=== PATIENT | male | born 1975 | race Caucasian/White ===

== ENCOUNTER 2021-05-12 18:35 | Emergency (ER) | payer OTHER, SELFPAY ==
--- NOTE | ~2021-05-12 | CT_ITS ---
EXAMINATION: CT ABDOMEN AND PELVIS WITH CONTRAST CLINICAL INFORMATION: Left lower quadrant pain COMPARISON: CT pelvis 12/04/2009 TECHNIQUE: Multidetector volumetric images were obtained from the superior aspect of the liver through the pubic symphysis following administration 85 mL of Omnipaque 350 intravenous contrast. Sagittal and coronal reformatted images were obtained on the technologist's workstation. Oral contrast: No This CT examination was performed using dose optimization techniques as appropriate, variously including the following: *Automated exposure control *Adjustment of mA and/or kV according to patient size (this includes techniques or standardized protocols for targeted exams where dose is matched to indication/reason for exam; i.e. extremities or head) *Use of iterative reconstruction technique DLP: 654 mGy-cm FINDINGS: LUNG BASES: The visualized lung bases are unremarkable. LIVER, GALLBLADDER, AND BILIARY TREE: The liver is normal in size, shape, and attenuation. No focal hepatic lesion or biliary ductal dilatation is present. The gallbladder is unremarkable with no evidence of radiopaque gallstones, gallbladder wall thickening, or obvious pericholecystic inflammatory changes. PANCREAS: Unremarkable. SPLEEN: Unremarkable. ADRENAL GLANDS: Unremarkable. KIDNEYS AND URETERS: The kidneys are normal in size, shape, and attenuation. No hydronephrosis, hydroureter, or calculi seen. No perinephric stranding. BLADDER: Unremarkable. GASTROINTESTINAL TRACT: A small hiatal hernia is present. Diverticular changes are present in throughout the colon and in the distal descending colon there is an area of acute diverticulitis with colonic wall thickening, pericolonic inflammatory changes and fluid in the lateral conal fascia and anterior pararenal fascia. No extraluminal air or extraluminal pericolonic fluid collections are seen. There is marked fatty infiltration of the ileocecal valve as well as submucosal fat in the very distal ileum possibly secondary to old inflammatory disease. The small bowel is otherwise unremarkable. The appendix is not seen but there is no evidence of appendicitis. ABDOMINAL WALL: There is a small periumbilical hernia containing only fat and some mild diastases of the rectus muscles superiorly. LYMPH NODES: No retroperitoneal lymphadenopathy. VASCULAR: Unremarkable. PELVIC VISCERA: Prostate and seminal vesicles appear normal. OSSEOUS STRUCTURES: Mild degenerative changes present spine. CT/CT abdomen pelvis w con IMPRESSION: Acute uncomplicated diverticulitis involving the distal descending colon. Other incidental findings as described above. Fleischner guidelines were followed.
[2021-05-12 19:39] VITALS: BP 138/81; PULSE 92; RESP 18; TEMP 37.1; O2SAT 98; BMI 31.4
[2021-05-12 19:48] LABS: MANUAL DIFF FLAG NO
[2021-05-12 19:50] LABS: Basophils Absolute Auto 0.1 X10*3/uL (0.0-0.2); Basophils Percent Auto 0.7 % (0-2); Eosinophils Absolute Auto 0.5 X10*3/uL (0.0-0.4); Eosinophils Percent Auto 3.4 % (0-4); Hematocrit 43.5 % (42.0-52.0); Hemoglobin 15.2 g/dl (14.0-18.0); Imm Gran Abs Auto 0.05 X10*3/uL (0.00-0.03); Imm Gran Pct Auto 0.4 % (0.0-0.4); Lymphocytes Absolute Auto 3.4 X10*3/uL (1.2-4.9); Lymphocytes Percent Auto 25.7 % (20-40); Mean Corpuscular HGB Conc 34.9 g/dl (31.0-36.0); Mean Corpuscular Hemoglobin 30.6 pg (27.0-33.0); Mean Corpuscular Volume 87.7 fL (80.0-98.0); Mean Platelet Volume 8.9 fL (9.4-12.4); Monocytes Absolute Auto 0.9 X10*3/uL (0.1-1.2); Monocytes Percent Auto 6.4 % (2-11); Neutrophils Absolute Auto 8.5 x10*3/uL (2.0-8.3); Neutrophils Percent Auto 63.4 % (45-73); Platelet Count 284 X10*3/uL (160-400); Red Blood Count 4.96 X10*6/uL (4.60-5.80); Red Cell Distribution Width 12.7 % (11.0-16.0); White Blood Count 13.3 X10*3/uL (4.8-10.8)
[2021-05-12 20:13] LABS: Alanine Aminotransferase 27 U/L (0-40); Albumin Level 4.5 g/dL (3.5-5.0); Alkaline Phosphatase 68 U/L (39-117); Anion Gap 15 (12-20); Aspartate Amino Transferase 20 U/L (5-37); Bilirubin Total 1.4 mg/dL (0.0-1.0); Blood Urea Nitrogen 11 mg/dL (9-16); Calcium 10.3 mg/dL (8.4-10.2); Carbon Dioxide 30 mmol/L (22-29); Chloride 100 mmol/L (96-108); Creatinine Clr Calc Pharmacy 91.5; Estimated Glomerular Filt Rate > 60; Glucose Random 101 mg/dL (60-115); Potassium 3.6 mmol/L (3.3-5.1); Sodium 141 mmol/L (135-145); Total Protein 7.9 g/dL (6.5-8.0)
--- NOTE | 2021-05-12 22:08 | ED.ABDPAIN ---
HPI - Abdominal Pain General Chief Complaint: Abdominal Pain Stated Complaint: sever abd pain Time Seen by Provider: 05/12/21 22:05 Source: patient Mode of arrival: ambulatory History of Present Illness HPI narrative: 46-year-old male with history of diverticulitis presents with onset of left lower quadrant pain that started approximately 09:00 o'clock this morning. Patient states that the pain has continued to increase over the course the day and has been associated with nausea as well as chills. Related Data Previous Rx's Medication Instructions Recorded amoxicillin 875 mg-potassium 1 tab PO Q12H 10 Days #20 tab 05/13/21 clavulanate 125 mg tablet ondansetron 4 mg disintegrating 4 mg PO Q6H PRN #7 tab 05/13/21 tablet Allergies Allergy/AdvReac Type Severity Reaction Status Date / Time No Known Allergies Allergy Verified 05/12/21 19:38 Review of Systems Review of Systems Pertinent positives and negatives as stated in HPI 10 point review of systems is otherwise negative. PMFSH Past Medical History Source: nursing notes reviewed Social History Social History Advance Directives: No Advance Directives Information Provided: No Physical Exam ED Vital Signs: Vital Signs - 24 hr 05/12/21 19:39 05/12/21 22:32 Temperature 98.8 F Pulse Rate 92 Respiratory Rate 18 18 Blood Pressure 138/81 Pulse Oximetry 98 BMI result Body Mass Index 31.4 VITAL SIGNS: Reviewed. GENERAL: Well developed, well nourished, in no acute distress. HEAD: Normocephalic/atraumatic EYES: PERRLA, EOMI EARS: Ext canals without abnormality NOSE: Nares patent bilateral OROPHARYNX: no oral lesions noted, posterior pharynx clear LUNGS: Normal breath sounds. No adventitious sounds or accessory muscle use. SpO2<98> CARDIOVASCULAR: Regular rate and rhythm without noted murmurs ABDOMEN: Soft, left lower quadrant pain without rebound, non-distended with bowel sounds. NEUROLOGIC: Alert and oriented x 4. Course Course Course Narrative: History and clinical presentation consistent with diverticulitis. Patient received pain medication, IV fluids, antibiotics. Review of all investigations consistent with diverticulitis, uncomplicated and patient will be sent home with outpatient antibiotics and instructions to follow-up with his primary care provider as well as GI. MDM - Abdominal Pain Lab Data Result diagrams: 05/12/21 19:44 05/12/21 19:44 Labs: Lab Results 05/12/21 05/12/21 05/12/21 Range/Units 19:44 19:44 22:48 WBC 13.3 H (4.8-10.8) X10*3/uL RBC 4.96 (4.60-5.80) X10*6/uL Hgb 15.2 (14.0-18.0) g/dl Hct 43.5 (42.0-52.0) % MCV 87.7 (80.0-98.0) fL MCH 30.6 (27.0-33.0) pg MCHC 34.9 (31.0-36.0) g/dl RDW 12.7 (11.0-16.0) % Plt Count 284 (160-400) X10*3/uL MPV 8.9 L (9.4-12.4) fL Immature Gran % (Auto) 0.4 (0.0-0.4) % Neut % (Auto) 63.4 (45-73) % Lymph % (Auto) 25.7 (20-40) % Garden % (Auto) 6.4 (2-11) % Eos % (Auto) 3.4 (0-4) % Baso % (Auto) 0.7 (0-2) % Lymph # (Auto) 3.4 (1.2-4.9) X10*3/uL Garden # (Auto) 0.9 (0.1-1.2) X10*3/uL Eos # (Auto) 0.5 H (0.0-0.4) X10*3/uL Baso # (Auto) 0.1 (0.0-0.2) X10*3/uL Abs Immat Gran (auto) 0.05 H (0.00-0.03) X10*3/uL Absolute Neuts (auto) 8.5 H (2.0-8.3) x10*3/uL Absolute Nucleated RBC 0.000 (0.0-0.012) X10*3/uL Nucleated RBC % (auto) 0.0 (0.0-0.2) /100WBC PT (9.9-13.0) SEC INR (0.9-1.1) Sodium 141 (135-145) mmol/L Potassium 3.6 (3.3-5.1) mmol/L Chloride 100 (96-108) mmol/L Carbon Dioxide 30 H (22-29) mmol/L Anion Gap 15 (12-20) BUN 11 (9-16) mg/dL Creatinine 1.05 (0.5-1.4) mg/dL Estim Creat Clear Calc 91.5 Estimated GFR > 60 Random Glucose 101 (60-115) mg/dL Lactic Acid 1.8 (0.5-2.0) mmol/L Calcium 10.3 H (8.4-10.2) mg/dL Total Bilirubin 1.4 H (0.0-1.0) mg/dL AST 20 (5-37) U/L ALT 27 (0-40) U/L Alkaline Phosphatase 68 (39-117) U/L Total Protein 7.9 (6.5-8.0) g/dL Albumin 4.5 (3.5-5.0) g/dL COVID-19 ([facility]) (Negative) COVID-19 Clin Com 05/12/21 05/12/21 Range/Units 22:48 22:48 WBC (4.8-10.8) X10*3/uL RBC (4.60-5.80) X10*6/uL Hgb (14.0-18.0) g/dl Hct (42.0-52.0) % MCV (80.0-98.0) fL MCH (27.0-33.0) pg MCHC (31.0-36.0) g/dl RDW (11.0-16.0) % Plt Count (160-400) X10*3/uL MPV (9.4-12.4) fL Immature Gran % (Auto) (0.0-0.4) % Neut % (Auto) (45-73) % Lymph % (Auto) (20-40) % Garden % (Auto) (2-11) % Eos % (Auto) (0-4) % Baso % (Auto) (0-2) % Lymph # (Auto) (1.2-4.9) X10*3/uL Garden # (Auto) (0.1-1.2) X10*3/uL Eos # (Auto) (0.0-0.4) X10*3/uL Baso # (Auto) (0.0-0.2) X10*3/uL Abs Immat Gran (auto) (0.00-0.03) X10*3/uL Absolute Neuts (auto) (2.0-8.3) x10*3/uL Absolute Nucleated RBC (0.0-0.012) X10*3/uL Nucleated RBC % (auto) (0.0-0.2) /100WBC PT 12.3 (9.9-13.0) SEC INR 1.1 (0.9-1.1) Sodium (135-145) mmol/L Potassium (3.3-5.1) mmol/L Chloride (96-108) mmol/L Carbon Dioxide (22-29) mmol/L Anion Gap (12-20) BUN (9-16) mg/dL Creatinine (0.5-1.4) mg/dL Estim Creat Clear Calc Estimated GFR Random Glucose (60-115) mg/dL Lactic Acid (0.5-2.0) mmol/L Calcium (8.4-10.2) mg/dL Total Bilirubin (0.0-1.0) mg/dL AST (5-37) U/L ALT (0-40) U/L Alkaline Phosphatase (39-117) U/L Total Protein (6.5-8.0) g/dL Albumin (3.5-5.0) g/dL COVID-19 ([facility]) Negative (Negative) COVID-19 Clin Com See Note Discharge Plan Discharge Clinical Impression: Diverticulitis Patient Disposition: Home, Self-Care Instructions: Diverticulitis (ED), Diverticulitis Diet (ED) Additional Instructions: 1. Complete the entire course of antibiotics as prescribed. You have also been prescribed antinausea medication. 2. You should consistently take Tylenol/ibuprofen, [id number], for pain control. 3. Please follow the recommendations for diet. 4. You will need to follow-up with Gastroenterology in 6 weeks. Return to the ER for worsening symptoms. Prescriptions: New amoxicillin-pot clavulanate 875-125 mg tablet 1 tab PO Q12H 10 Days Qty: 20 0RF ondansetron 4 mg tablet,disintegrating 4 mg PO Q6H PRN (Reason: nausea and vomiting) Qty: 7 0RF
[2021-05-12] MEDS: 0.9 % Sodium Chloride 1,000 ML 999 ML IV (22:29)
[2021-05-12] MEDS: Piperacillin Sodium/Tazobactam 3.375 GM in 0.9 % Sodium Chloride 50 ML IV (22:29)
[2021-05-12 22:32] VITALS: RESP 18
[2021-05-12] MEDS: HYDROmorphone HCl 0.5 MG/0.5 ML SYRINGE IVPUSH (22:32)
[2021-05-12 23:04] LABS: INTERNATIONAL NORM RATIO 1.1 (0.9-1.1); Prothrombin Time 12.3 SEC (9.9-13.0)
[2021-05-12 23:07] LABS: Lactic Acid 1.8 mmol/L (0.5-2.0)
[2021-05-12 23:10] LABS: COVID-19 Test Negative (Negative)
[2021-05-12] MEDS: iohexoL 350 MG/ML 100 ML INFUS..BTL 85 ML IV (23:34)
[2021-05-13 01:01] VITALS: BP 122/76; PULSE 88; RESP 16; TEMP 36.7; O2SAT 98
== END 2021-05-13 01:23 | disposition home or self-care (01) ==
PROVIDERS: Emergency Provider Student in an Organized Health Care Education/Training Program
DX: K57.92 Diverticulitis of intestine, part unspecified, without perforation or abscess without bleeding (principal); Z20.822 Contact with and (suspected) exposure to COVID-19
CPT/HCPCS: 36415; 74177; 80053; 83605; 85025; 85610; 87040; 87635; 96365; 96375; 99283; 99284; J1170; J2543; Q9967

== ENCOUNTER 2024-01-13 20:03 | Emergency (ER) | payer OTHER, SELFPAY ==
--- NOTE | ~2024-01-13 | XR_ITS ---
EXAMINATION: XR FOOT, RIGHT CLINICAL INFORMATION: Pain. COMPARISON: None available. TECHNIQUE: AP, lateral, and oblique views of the right foot. FINDINGS: Nonspecific focal lucency with cortical disruption along the dorsal aspect of the talus on the lateral view. Mild multifocal degenerative osteoarthritis. Diffuse soft tissue swelling. XR/XR foot RT min 3V IMPRESSION: 1. Nonspecific focal lucency with cortical disruption along the dorsal aspect of the talus on the lateral view; uncertain if this could be related with an avulsion injury or infectious process. Recommend correlation with physical examination and if indicated further characterization with a CT of the right ankle/foot. 2. Mild multifocal degenerative osteoarthritis. 3. Diffuse soft tissue swelling. Electronically signed by: Katie Brown MD 01/13/2024 09:58 PM EDT
[2024-01-13 20:14] VITALS: BP 125/89; PULSE 76; RESP 16; TEMP 36.8; O2SAT 94; BMI 31.5
--- NOTE | 2024-01-13 20:14 | ED.LOWEXIN ---
HPI - Extremity Injury (Lower) General Chief Complaint: Extremity Injury, Lower Stated Complaint: L ankle pain Time Seen by Provider: 01/13/24 23:09 History of Present Illness ED Provider: Cynthia SEGOVIA Narrative: The patient is a 48-year-old male who injured his ankle 2 weeks ago when he was going down some stairs. He says that he ?rolled? his ankle with an inversion injury. He says that he had a lot of bruising earlier. He says the bruising has gotten better but he still has pain at the foot/ankle and it still hurts when he walks. Related Data Previous Rx's ?Medication ?Instructions ?Recorded amoxicillin 875 mg-potassium 1 tab PO Q12H 10 days #20 tabs 05/13/21 clavulanate 125 mg tablet ondansetron 4 mg disintegrating 4 mg PO Q6H PRN nausea and 05/13/21 tablet vomiting #7 tabs Allergies Allergy/AdvReac Type Severity Reaction Status Date / Time No Known Allergies Allergy Verified 01/13/24 20:17 Review of Systems Review of Systems: Yes all other systems are reviewed and are negative [facility] Social History Social History Smoked in Last 30 Days: No Use of substances other than those prescribed or required for medical reasons: No Advance Directives: No Physical Exam Vital Signs: Vital Signs: Last Vital Signs Temp 98.3 F 01/14/24 00:06 Pulse 76 01/14/24 00:06 Resp 16 01/14/24 00:06 BP 125/89 01/14/24 00:06 Pulse Ox 94 01/14/24 00:06 O2 Del Method Room Air 01/14/24 00:06 BMI result Body Mass Index 31.5 HEENT: Other: Face is symmetrical. Mucous membranes moist. Eyes: General: appearance normal, both eyes and all related structures Resp: Effort & Inspection: normal respiratory effort Cardio: Rate: regular rate Rhythm: regular rhythm Heart sounds: S1 normal heart sound present, S2 normal heart sound present and Murmur heart sound present (No murmur ) Skin: Other: The skin of the right ankle and foot is intact. There may be some mild swelling to the lateral aspect of the dorsal midfoot. No significant swelling over the malleoli. Neuro: Other: The patient is awake and alert with a normal mental status. Cranial nerves are grossly intact. He has intact motor and sensory function of the right foot. Extrem: Other: The right foot is neurovascularly intact. There is some mild soft tissue swelling to the dorsal midfoot laterally. There is some tenderness to the dorsal midfoot. No tenderness to the malleoli. Course Course Course Narrative: This is an RME performed by Kade Martínez, [employer]: Additional HPI, ROS, PE not included below will be deferred to primary provider. Patient is a 40-year-old male presents emergency department for evaluation of traumatic right lateral ankle/ lateral midfoot pain, reports rolling at approximately 2 weeks ago, pain has continued to be problematic. He did not seek initial evaluation. Reports initially having extensive bruising which has since resolved Denies associated numbness or tingling. Exam: 2+ DP/PT pulse, no ecchymosis, localized swelling to the lateral midfoot/malleolus. Plan: XR Medical Decision Making Medical Decision Making MDM Narrative: Clinically it seems as though the patient's sprained his ankle 2 weeks ago. His x-ray shows cortical abnormality on the dorsal aspect of the talus which could represent an avulsion type injury. I do not think there is any good alternative explanation. The patient will be placed in an orthopedic boot. The patient has crutches at home. The patient should rest the foot and elevated. He should use crutches to keep weight off the foot. He should follow up with Orthopedics for re-evaluation and for further consideration of the abnormality on his x-ray. Discharge Plan Discharge Clinical Impression: Right foot sprain Patient Disposition: Home, Self-Care Additional Instructions: The x-ray of your foot shows what might be an avulsion injury to your talus bone. I suspect this is part of your ankle sprain syndrome. Please use the orthopedic boot provided when you were not driving. Also use your crutches to keep weight off the foot. This weekend I would recommend resting as much as you can. Keep the foot elevated as often as you can. Use ice for 10-15 minutes every couple of hours. Always keep a dry cloth between your skin and the ice bag. Please contact the orthopedic office on Tuesday to set up a follow up appointment to discuss your injury and your x-ray findings. At work I would recommend wearing the orthopedic boot and using your crutches. Return to the emergency room if significantly worse. Prescriptions: No Action amoxicillin-pot clavulanate 875-125 mg tablet 1 tab PO Q12H 10 Days Qty: 20 0RF ondansetron 4 mg tablet,disintegrating 4 mg PO Q6H PRN (Reason: nausea and vomiting) Qty: 7 0RF Referrals: [facility]geons [Provider Group] (Right ankle/foot sprain with probable evidence of avulsion injury to the dorsum of the talus ) Interventions: ED Discharge Assessment Last Done: 01/14/24 00:06 Discharge Date/Time: 01/14/24 00:07 Print Language: Cook Islander
[2024-01-14 00:06] VITALS: BP 125/89; PULSE 76; RESP 16; TEMP 36.8; O2SAT 94
== END 2024-01-14 00:07 | disposition home or self-care (01) ==
PROVIDERS: Emergency Provider Emergency Medicine
DX: S93.402A Sprain of unspecified ligament of left ankle, initial encounter (principal); S93.601A Unspecified sprain of right foot, initial encounter; X58.XXXA Exposure to other specified factors, initial encounter; Y93.89 Activity, other specified; Y92.89 Other specified places as the place of occurrence of the external cause; Y99.8 Other external cause status
CPT/HCPCS: 73630; 99283; 99284

== ENCOUNTER 2024-02-02 11:10 | Outpatient (AMB) | payer OTHER, SELFPAY ==
--- NOTE | 2024-02-02 11:25 | A.OFFVIS_ITS ---
Intake Visit Reasons: FC - Right foot fx, DOI 12/30/23 Intake Note: Lee is a 48 year old male who presents today for a evaluation of his right foot injury, DOI 12/30/23. Patient reports he was going down the stairs when he rolled his ankle. He says that he had a lot of bruising earlier that day. About 2 days ago he couldn't bear weight or ambulate. He states that he was given a tall walking boot at the ED and he wore the boot for a full week. Patient tried Advil with mild relief. Denies numbness and tingling in the toes. 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 The patient presented to the ED on 01/15/24 status post an inversion injury when his right ankle ?rolled? when ambulating down the stairs. This injury occurred around 2 weeks ago from the date of ED encounter. X-rays of the right ankle were obtained in the ER. He was placed in an orthopedic boot. He has crutches at home and was advised to use it when ambulating. He was recommended rest, ice, and elevation. While in the office today, the patient reports he had a severe bruising earlier on the day of injury. He was unable to bear weight or ambulate after 2 days from the day of injury. He states he was placed in a tall walking boot at the ED and he wore it for a full week. He has tried Advil with mild relief. He denies numbn ess or tingling sensation in the right toes. 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 No ecchymosis, erythema, or edema. No tenderness to palpation over all anatomical landmarks. The patient is able to demonstrate dorsiflexion, plantar flexion, pronation and supination. negative anterior drawer. Full ROM in all the planes. sensation intact. pedal pulse intact. Assessment & Plan Assessment & Plan (1) Right foot sprain: Code(s): S93.601A - Unspecified sprain of right foot, initial encounter Category: Medical (2) Right ankle sprain: Code(s): S93.401A - Sprain of unspecified ligament of right ankle, initial encounter Category: Medical Plan Mr. Chaudhari is a 48-year-old male who presents in the office today, as a new patient, for an evaluation of right foot sprain. The patient presented to the ED on 01/15/24 status post an inversion injury when his right ankle ?rolled? when ambulating down the stairs. This injury occurred around 2 weeks ago from the date of ED encounter. X-rays of the right ankle were obtained in the ER. He was placed in an orthopedic boot. He has crutches at home and was advised to use it when ambulating. He was recommended rest, ice, and elevation. While in the office today, the patient reports he had a severe bruising earlier on the day of injury. He was unable to bear weight or ambulate for 2 days after the injury. He states he was placed in a tall walking boot at the ED and he wore it for a week and then discontinued. He has tried Advil with mild relief. He denies numbness or tingling sensation in the right toes. 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 The patient reports that the pain has subsided since his initial injury; however, currently he is experiencing episodes of weakness and his right ankle giving out causing him to invert the right ankle while ambulating. Therefore, I would like to order an MRI of the right ankle to further evaluate the integrity of the ankle and surrounding structures. I have also placed a referral to physical therapy today. Follow-up will be after the MRI is obtained, or sooner if needed. Orders: Orders XR foot RT min 3V Today M79.673 - Pain in unspecified foot PT Evaluation and Treatment Today S93.601A - Unspecified sprain of right foot, initial encounter MR ankle RT wo con Today S93.401A - Sprain of unspecified ligament of right ankle, initial encounter Medications: Discontinued amoxicillin-pot clavulanate 875-125 mg Discontinued Reason: Patient no longer taking 1 tab PO Q12H 10 days 20 tabs 0RF ondansetron Discontinued Reason: Patient no longer taking 4 mg PO Q6H PRN 7 tabs 0RF nausea and vomiting Patient Instructions: Scribed by Serina Mcfarlane medical records supervisor, for Annita Whittington PA-C on 02/02/24 at 12:28 pm EST. Coding Level of Care Code New Pt Level 4 (91075) Diagnoses Right foot sprain S93.601A Right ankle sprain S93.401A
== END 2024-02-02 11:47 | disposition home or self-care (01) ==
PROVIDERS: Visit Provider Physician Assistant
DX: S93.601A Unspecified sprain of right foot, initial encounter (principal); S93.401A Sprain of unspecified ligament of right ankle, initial encounter
CPT/HCPCS: 99204

== ENCOUNTER 2024-02-02 12:34 | Outpatient (REF) | payer OTHER, SELFPAY | END 2024-02-02 12:35 | disposition home or self-care (01) | LOC: HO.HOSX 12:34 | PROVIDERS: Visit Provider Physician Assistant | DX: M79.673 Pain in unspecified foot (principal) | CPT/HCPCS: 73630 ==

== ENCOUNTER 2025-01-17 13:47 | Outpatient (AMB) | payer OTHER, SELFPAY ==
--- OUTSIDE RECORDS SUMMARY | 2024-03-27 06:30 | XMS_ITS ---
[facility] Organization [facility] Address [address] [place] [address] Care Team Providers Care Regional Sales Representative Name Role Phone MAURY MULLINS [phone] Encounters Encounter Location Date Provider Diagnosis [facility] [address] [place] [address] 03/27/2024 MAURY MULLINS Plan Of Treatment Next Appt Details Provider Name:MAURY MULLINS , 05/01/2025 08:30:00 AM, [address], [address], [place], [address], Progress Notes * Lee CHAUDHARIDOB: 6 (49 yo M)Acc No.[id number]:03/27/2024 CPE Patient: Lee PACKER Provider: Jf MULLINS :1975 A ge:48 Y S ex:Male Date:03/27/2024 Address:[address] [place], [place] [id number] Subjective: * Chief Complaints: * * Medical History: Objective: * Vitals: Assessment: Plan: * Treatment: * Images: Billing Information: * Visit Code: * Procedure Codes: Care Plan Details* * Electronic signature of MARY MULLINS PA-C, [id number] on 01/17/2025 at 04:46 PM EDT Sign off status: Pending * Provider: Jf MULLINS Date: 0 03/27/2024 Generated for Ninoskai ng/Faxing/eTransmitting on: 1 04:46 PM EDT
--- OUTSIDE RECORDS SUMMARY | 2024-09-04 06:00 | XMS_ITS ---
Author Organization [facility] Address [address] [place] [address] Care Team Providers Care Unit Operator Name Role Phone MAURY MULLINS Unavailable [phone] REASON FOR VISIT pt presents to office [...] Active Encounters Encounter Location Date Provider Diagnosis [facility] [address] [place] [phone] 09/04/2024 MAURY MULLINS Assessments Encounter Date Diagnosis [...] room. Reports that he was seen by [facility] general surgery, found to have 3 [...] was accompanied by staff and brought to [facility] ED for further evaluation. All questions have been answered to patient's satisfaction. Patient verbalized understanding of diagnosis and treatments explained. Advised to call sooner prior to next visit it any questions/concerns arise. Case discussed with collaborating physician Paras Reese who reviewed the assessment and plan. Chart, medications, labs, vital signs reviewed. Dictation was accomplished with the use of [employer] voice recognition software, which is prone to medical misidentifications and grammatical errors. This are unintentional and the practitioner does try to identify and correct these, but some could still be present. Please do not hesitate to contact practitioner for clarification. Plan Of Treatment Next Appt Details Provider Name:MAURY MULLINS , 05/01/2025 08:30:00 AM, [address] [place] [address], [phone], Progress Notes * Lee CHAUDHARIDOB: 6 (49 yo M)Acc No.[id number]:09/04/2024 Progress Notes Patient: Lee PACKER Provider: Jf RODGERSEdda HARPREET :1975 A ge:49 Y S ex:Male Date:09/04/2024 Address:[address] [place], [place] [id number] Subjective: * Chief Complaints: * 1 . [...] he was being roomed by the medical insurance verifier, reported sudden onset severe abdominal pain that is generalized. He reports that he was seen by [facility] general surgery back in May after he was referred to their practice in February, upon review of the chart, ultrasound of the abdomen revealed 3 adjacent supraumbilical hernias containing peritoneal fat. He reports that he has had similar episodes of this pain previously, 1 in which he went to [facility] ED for, a second time for [...] swelling. * Medical History: * Medications: T corettag Rosuvastatin Calcium 10 MG Tablet 1 tablet [...] room. Reports that he was seen by [facility] general surgery, found to have 3 [...] was accompanied by staff and brought to [facility] ED for further evaluation. All questions [...] * Electronic signature of MARY MULLINS PA-C, [id number] on 01/17/2025 at 04:46 PM EDT Sign off status: Pending * Provider: Jf MULLINS Date: 0 09/04/2024 Generated for Merrill acharya/Anais/Tye on: 1 04:46 PM EDT History and Physical Notes * HPI (History [...] he was being roomed by the medical insurance verifier, reported sudden onset severe abdominal pain that is generalized. He reports that he was seen by [facility] general surgery back in May after he was referred to their practice in February, upon review of the chart, ultrasound of the abdomen revealed 3 adjacent supraumbilical hernias containing peritoneal fat. He reports that he has had similar episodes of this pain previously, 1 in which he went to [facility] ED for, a second time for [...]
[2025-01-17 14:00] VITALS: BMI 30.7
--- NOTE | 2025-01-17 14:00 | MHC.OFFVIS ---
Vital Signs 01/17/25 14:00 Height 5 ft 6 in Weight 190 lb BMI 30.7 Intake Visit Reasons: Rt foot pain Intake Note: Lee is a 49 year old male who presents today as a new patient for an evaluation of his right foot pain. Pt states pain has been going on for about 1 year in his right foot and it runs through the whole foot but more so in the lateral aspect. Pt was provided with a cam boot when injury occured other then that he has not had any further treatment. He notes pain in his left foot for about 1 month and is located on the ball of the foot and runs down to the arch, and it is also felt in the hindfoot. patient has not tried any treatment for his left foot pain. Allergies No Known Allergies Allergy (Verified 02/02/24 11:28) HPI Comments Details: The patient is a 49-year-old male with a PMH as seen below presenting with right foot and ankle pain. Approximately a year ago, the patient experienced a severe sprain injury to the right foot after missing a step, resulting in significant swelling and bruising. Initial x-rays revealed an avulsion fracture, and the patient was placed in a boot for immobilization. The patient did not complete the recommended MRI due to travel and subsequent symptom improvement. However, pain recurred in February, characterized by intermittent shooting pains and a sensation of instability, particularly on the lateral aspect of the foot. Pain severity varies, reaching up to 8-9/10 during exacerbations, and is typically around 4/10 during daily activities. The patient reports working on concrete floors and using supportive footwear and inserts to mitigate discomfort. He has not taken regular medication for pain but has used naproxen occasionally with some relief. The patient denies any history of back injuries but reports occasional sciatic pain. He states he experiences intermittent numbness and tingling to the lower extremities. He denies any other pedal concerns. [facility] Medical History (Updated 01/21/25 @ 08:00 by Rosa Meneses DPM) Peroneal tendinitis of right lower extremity Radiculopathy Right ankle pain Bilateral foot pain Review of Systems Const Details: - Musculoskeletal: Reports intermittent shooting pain in the right foot and ankle, particularly on the lateral side. - Neurological: Reports occasional sciatic pain and intermittent electrical shock like sensations in both feet. All systems reviewed & are unremarkable except as noted in HPI and below Physical Exam Vital Signs: BMI result Body Mass Index 30.7 Extrem Other: B/L Focused Physical Exam: Derm: No open lesions, abrasions, or wounds noted. No ecchymosis or discoloration noted. Skin supple and turgor WNL. No maceration noted. No clinical signs of infection noted. Vasc: DP/PT pulses palpable. CFT < 3 secs. Temp gradient warm to warm. Pedal hair present. No edema noted. No varicosities noted. Neuro: Protective sensations grossly diminished. MSK: Pain on palpation to the base of the right 5th met. Pain along the course of the right peroneus brevis tendon radiating towards the ankle behind the fibula. ROM of the forefoot, hindfoot, and ankles WNL. No crepitus or fluctuance noted. No pain on palpation to the left lower extremity. Mildly antalgic gait unassisted. Results Reviewed Results Reviewed: Ordered B/L foot xrays and right ankle xrays to be performed prior to next visit. Ordered NCV/EMG to be performed prior to next visit. Assessment & Plan Assessment & Plan (1) Bilateral foot pain: Code(s): M79.671 - Pain in right foot; M79.672 - Pain in left foot Category: Medical (2) Right ankle pain: Code(s): M25.571 - Pain in right ankle and joints of right foot Category: Medical (3) Radiculopathy: Code(s): M54.10 - Radiculopathy, site unspecified Category: Medical (4) Peroneal tendinitis of right lower extremity: Code(s): M76.71 - Peroneal tendinitis, right leg Category: Medical Plan Patient was informed and verbally consented to the use of an ambient scribe for clinic note documentation during this visit. I discussed with the patient the likelihood of right peroneal tendinitis and possible radiculopathy as the causes of his symptoms. We reviewed the need for updated x-rays and a nerve studies to further evaluate his condition. I explained the potential benefits of using meloxicam for pain management if naproxen proves inadequate. We also discussed the importance of avoiding barefoot walking and using compression and ice for swelling. Follow-up was arranged for two weeks to review x-ray results and further assess his condition. - Ordered x-rays for both feet and the right ankle to assess current status and rule out new fractures. - Ordered a nerve conduction study and EMG to evaluate for possible radiculopathy. - Continue Naproxen prn for pain. - Consider prescribing meloxicam if naproxen is insufficient for pain management. - Advised against barefoot walking and recommend using compression and ice if swelling occurs. - Continue wearing supportive shoe gear. RTC in 2 weeks. Orders: Orders XR ankle RT min 3V 01/17/25 M25.571 - Pain in right ankle and joints of right foot NE electromyogram (EMG) 01/17/25 M54.10 - Radiculopathy, site unspecified NE nerve conduction velocity 01/17/25 M54.10 - Radiculopathy, site unspecified, M79.671 - Pain in right foot, M79.672 - Pain in left foot XR Foot Marcos 3V 01/17/25 M79.671 - Pain in right foot, M79.672 - Pain in left foot Coding Level of Care Code Tele New Pt Level 4 (58332) Diagnoses Bilateral foot pain M79.671; M79.672 Right ankle pain M25.571 Radiculopathy M54.10 Peroneal tendinitis of right lower extremity M76.71 Time Spent (min) 48
--- OUTSIDE RECORDS SUMMARY | 2025-01-17 16:47 | XMS_ITS ---
Author Name [facility] Organization Unknown Care Team Organization Name Specialty Phone Email Start Date End [facility] te [facility] NULL Primary Care 03/02/2023 11/07/2023
--- OUTSIDE RECORDS SUMMARY | 2025-01-17 16:47 | XMS_ITS | Clinical Summary ---
Author Organization [facility] Address [address] [place] [address] Phone Care Team Providers Care Boat Pilot Name Role Phone Rachele Zamora Primary Care Provider [phone] Allergies No known active allergies Medications omeprazole (PriLOSEC) [address] Ibrahim ons:GERD (gastroesophage al reflux disease) TAKE 1 CAPSULE BY MOUTH EVERY DAY 30 capsule 3 11/14/2024 Active Encounters Date Type Department Care Team Description 12/26/2024 9:06 AM EDT - 12/26/2024 11:59 PM EDT Hospital Encounter [facility] [address] [place] [id number] Other enthesopathies, not elsewhere classified; Pain in right elbow Discharge Disposition: Home or Self Care 12/26/2024 9:05 AM EDT - 12/26/2024 11:59 PM EDT Hospital Encounter [facility] Xray [address] [place] [phone] Other enthesopathies, not elsewhere classified; Pain in right elbow Discharge Disposition: Home or Self Care from Last 3 Months Social History Tobacco Use Types Packs/Day Years Used Date Smoking Tobacco: Never Assessed Sex and Gender Information Value Date Recorded Sex Assigned at Not on file Legal Sex Male 8:09 PM EST Gender Identity Not on file Sexual Orientation Not on file Obstetrics History Last Filed Vital Signs Vital Sign Reading Time Taken Comments Blood Pressure 131/83 09/04/2024 3:34 PM EDT Pulse 85 09/04/2024 3:34 PM EDT Temperature 36.5 C (97.7 F) 09/04/2024 3:34 PM EDT Respiratory Rate 20 09/04/2024 3:34 PM EDT Oxygen Saturation 97% 09/04/2024 3:34 PM EDT Inhaled Oxygen Concentration - - Weight 88.5 kg (195 lb) 09/04/2024 10:16 AM EDT Height 167.6 cm (5' 6 ) 09/04/2024 10:16 AM EDT Body Mass Index 31.47 09/04/2024 10:16 AM EDT Plan of Treatment Health Maintenance Due Date Last Done Comments Colorectal Cancer Screening: Colonoscopy 1975 DTaP,Tdap,and Td Vaccines (1 - Tdap) 1994 Hepatitis B Vaccines (1 of 3 - 19+ 3-dose series) 1994 Cholesterol Screening (Lipid Panel) 02/20/2022 HIV Screening 02/20/2022 Hepatitis C Screening 02/20/2022 Social Influencers of Health Screening 02/20/2022 Depression Screening 03/21/2024 COVID-19 Vaccine ( - 2024-2 6 season) 2024 02/23/2021, 08/01/2020, 07/01/2020 Influenza Vaccine (#1) 2024 RSV Immunization Adult Patients (1 - 1-dose 75+ series) 2050 HIB Vaccines Aged Out No longer eligi ble based on patient's age to complete this topic HPV Vaccines Aged Out No longer eligi ble based on patient's age to complete this topic Hepatitis A Vaccines Aged Out No long er eligible based on patient's age to complete this topic IPV Vaccines Aged Out No longer eligi ble based on patient's age to complete this topic MMR Vaccines Aged Out No longer eligi ble based on patient's age to complete this topic Meningococcal ACWY Vaccine Aged Out N o longer eligible based on patient's age to complete this topic Meningococcal B Vaccine Aged Out No l onger eligible based on patient's age to complete this topic Pneumococcal Vaccine: Pediatrics (0 to 5 Years) and At-Risk Patients (6 to 49 Years) Aged Out No longer eligible b ased on patient's age to complete this topic RSV Immunization Patients Under 20 months Aged Out No longer eligible b ased on patient's age to complete this topic Varicella Vaccines Aged Out No longer eligible based on patient's age to complete this topic Procedures Procedure Name Priority Date/Time Associated Diagnosis Comments XR SHOULDER 2+ VIEWS RIGHT Routine 12/26/2024 9:31 AM EDT Other enthesopathies, not elsewhere classified Pain in right elbow XR ELBOW 3+ VIEWS RIGHT Routine 12/26/2024 9:30 AM EDT Other enthesopathies, not elsewhere classified Pain in right elbow from Last 3 Months Results * XR Shoulder 2+ Views Right (12/26/2024 9:31 AM EDT) Anatomical Region Laterality Modality Upper Extremities, Shoulder Right Radi ographic Imaging 12/26/2024 9:35 AM EDT Impressions 12/26/2024 9:35 AM EDT Normal examination. Code 94309 -------- FINAL REPORT -------- Dictated By: Jose Crandall Dictated Date: 12/26/2024 09:35 ET Assigned Physician: Jose Crandall Reviewed and Electronically Signed By: Jose Crandall Signed Date: 12/26/2024 09:35 ET Workstation ID: [id number] Transcribed By: Self Edit Transcribed Date: 12/26/2024 09:35 ET Narrative 12/26/2024 9:35 AM EDT HISTORY: The patient is a 49-year-old male with chronic pain in the right shoulder. No history of trauma is provided. FINDINGS: AP, right posterior oblique, and transscapular views of the right shoulder are obtained. The study demonstrates no fracture, dislocation, arthritic change, or other bony abnormality. No soft tissue abnormality is seen. Procedure Note Jose Crandall MD - 12/26/2024 HISTORY: The patient is a 49-year-old male with chronic pain in the rightshoulder. No history of trauma is provided. FINDINGS: AP, right posterior oblique, and transscapular views of theright shoulder are obtained. The study demonstrates no fracture,dislocation, arthritic change, or other bony abnormality. No soft tissueabnormality is seen. IMPRESSION: Normal examination. Code 61465 -------- FINAL REPORT -------- Dictated By: Jose Crandall Dictated Date: 12/26/2024 09:35 ET Assigned Physician: Jose Crandall Reviewed and Electronically Signed By: Jose Crandall Signed Date: 12/26/2024 09:35 ET Workstation ID: [id number] Transcribed By: Self Edit Transcribed Date: 12/26/2024 09:35 ET us Rachele [facility] IMG XR PROCEDURES Final R esult * XR Elbow 3+ Views Right (12/26/2024 9:30 AM EDT) Anatomical Region Laterality Modality Upper Extremities, Elbow Right Radiogr aphic Imaging 12/26/2024 9:35 AM EDT Impressions 12/26/2024 9:36 AM EDT Normal examination. Code 38902 -------- FINAL REPORT -------- Dictated By: Jose Crandall Dictated Date: 12/26/2024 09:35 ET Assigned Physician: Jose Crandall Reviewed and Electronically Signed By: Jose Crandall Signed Date: 12/26/2024 09:36 ET Workstation ID: [id number] Transcribed By: Self Edit Transcribed Date: 12/26/2024 09:35 ET Narrative 12/26/2024 9:36 AM EDT HISTORY: The patient is a 49-year-old male with chronic pain in the right elbow for 6 months. No history of trauma is provided. FINDINGS: AP, lateral, and oblique views of the right elbow are obtained. The study demonstrates no fracture, dislocation, arthritic change, or other bony abnormality. No joint effusion or other soft tissue abnormality is seen. Procedure Note Jose Crandall MD - 12/26/2024 HISTORY: The patient is a 49-year-old male with chronic pain in the rightelbow for 6 months. No history of trauma is provided. FINDINGS: AP, lateral, and oblique views of the right elbow are obtained.The study demonstrates no fracture, dislocation, arthritic change, orother bony abnormality. No joint effusion or other soft tissue abnormalityis seen. IMPRESSION: Normal examination. Code 62949 -------- FINAL REPORT -------- Dictated By: Jose Crandall Dictated Date: 12/26/2024 09:35 ET Assigned Physician: Jose Crandall Reviewed and Electronically Signed By: Jose Crandall Signed Date: 12/26/2024 09:36 ET Workstation ID: [id number] Transcribed By: Self Edit Transcribed Date: 12/26/2024 09:35 ET Rachele [facility] IMG XR PROCEDURES Final R esult from Last 3 Months Insurance [employer] Care Teams Boat Pilot Relationship Specialty Start Date End Date Rachele Zamora PA [address] [place] [phone] PCP - General 06/05/24
--- OUTSIDE RECORDS SUMMARY | 2025-01-17 16:47 | XMS_ITS | Patient Health Record ---
Author Organization [facility] [address] Address [address] [place] [address] Care Team Providers Care Supply And Distribution Manager Name Role Phone MAURY MULLINS Unavailable [phone] Allergies No Known Allergies Results Component Value Reference Range Notes Reddy Dove LP Default Reviewed date:04/19/2024 08:17:03 AM Interpretation: Performing Lab:[facility] Otero, [address] [facility], Phone - [phone], Director - Michelle Notes/Report: Reddy Dove LP Default A hand-written panel/profile was received from your office. In accordance with the [facility] Ambiguous Test Code Policy dated September 2002, we have completed your order by using the closest currently or formerly recognized AMA panel. We have assigned Lipid Panel, Test Code #790077 to this request. If this is not the testing you wished to receive on this specimen, please contact the [facility] Client Inquiry/Technical Services Department to clarify the test order. We appreciate your business. CBC/Diff Ambiguous Default Reviewed date:04/19/2024 08:18:05 AM Interpretation: Performing Lab:[facility], [address] [facility], [place], Phone - [phone], Director - MDJodry Notes/Report: WBC 7.7 3.4-10.8 x10E3/uL RBC 5.00 4.14-5.80 x10E6/uL Hemoglobin 15.4 13.0-17.7 g/dL Hematocrit 45.1 37.5-51.0 % MCV 90 79-97 fL MCH 30.8 26.6-33.0 pg MCHC 34.1 31.5-35.7 g/dL RDW 12.7 11.6-15.4 % Platelets 342 150-450 x10E3/uL Neutrophils 46 Not Estab. % Lymphs 42 Not Estab. % Monocytes 7 Not Estab. % Eos 4 Not Estab. % Basos 1 Not Estab. % Neutrophils (Absolute) 3.5 1.4-7.0 x10E3/uL Lymphs (Absolute) 3.2 0.7-3.1 x10E3/uL Monocytes(Absolute) 0.6 0.1-0.9 x10E3/uL Eos (Absolute) 0.3 0.0-0.4 x10E3/uL Baso (Absolute) 0.1 0.0-0.2 x10E3/uL Immature Granulocytes 0 Not Estab. % Immature Grans (Abs) 0.0 0.0-0.1 x10E3/uL Hematology Comments: A hand-written panel/profile was received from your office. In accordance with the [facility] Ambiguous Test Code Policy dated September 2002, we have assigned CBC with Differential/Platelet, Test Code #[id number] to this request. If this is not the testing you wished to receive on this specimen, please contact the [facility] Client Inquiry/ Technical Services Department to clarify the test order. We appreciate your business. Comp. Metabolic Panel ([phone] Reviewed date:04/19/2024 08:17:56 AM Interpretation: Performing Lab:[facility], [address], [place], Phone - [phone], Director - Michelle Notes/Report: Glucose 96 70-99 mg/dL BUN 12 6-24 mg/dL Creatinine 1.00 0.76-1.27 mg/dL eGFR 92 >59 mL/min/1.73 BUN/Creatinine Ratio 12 9-20 Sodium 140 134-144 mmol/L Potassium 4.0 3.5-5.2 mmol/L Chloride 98 96-106 mmol/L Carbon Dioxide, Total 28 20-29 mmol/L Calcium 9.7 8.7-10.2 mg/dL Protein, Total 7.7 6.0-8.5 g/dL Albumin 4.6 4.1-5.1 g/dL Globulin, Total 3.1 1.5-4.5 g/dL Bilirubin, Total 1.1 0.0-1.2 mg/dL Alkaline Phosphatase 71 44-121 IU/L AST (SGOT) 23 0-40 IU/L ALT (SGPT) 31 0-44 IU/L Lipid Panel-[id number] Reviewed date:04/20/2024 08:51:45 AM Interpretation: Performing [facility], [address] [place] [address], Phone - [phone], Director - Michelle Notes/Report: Cholesterol, Total 200 100-199 mg/dL Triglycerides 370 0-149 mg/dL HDL Cholesterol 34 >39 mg/dL VLDL Cholesterol Sid 63 5-40 mg/dL LDL Chol Calc ([facility]) 103 0-99 mg/dL Vitamin D, 44-Peqnfnd-[id number] Reviewed date:04/20/2024 08:51:41 AM Interpretation: Performing Lab:[facility], [address] [place] [address], Phone - [phone], Director - Michelle Notes/Report: Vitamin D, 25-Hydroxy 23.9 30.0-100.0 ng/mL Vitamin D deficiency has been defined by the [place] [employer] and an Endocrine Society practice guideline as a level of serum 25-OH vitamin D less than 20 ng/mL (1,2). The Endocrine Society went on to further define vitamin D insufficiency as a level between 21 and 29 ng/mL (2). 1. IOM ([place] [employer]). 2010. Dietary reference intakes for calcium and D. [place]: The National Academies Press. 2. Alondra MF, Eduardo NC, Alex DAN, et al. Evaluation, treatment, and prevention of vitamin D deficiency: an Endocrine Society clinical practice guideline. JCEM. 2010; 96(7):1911-30. Reddy Dove CMP14 Default A hand-written panel/profile was received from your office. In accordance with the [facility] Ambiguous Test Code Policy dated September 2002, we have completed your order by using the closest currently or formerly recognized AMA panel. We have assigned Comprehensive Metabolic Panel (14), Test Code #[id number] to this request. If this is not the testing you wished to receive on this specimen, please contact the [email or web address] Client Inquiry/Technical Services Department to clarify the test order. We appreciate your business. TSH-[id number] Reviewed date:04/19/2024 08:17:11 AM Interpretation: Performing Lab:[facility], [address] [place] [address], [place], Phone - [phone], Director - Michelle Notes/Report: TSH 2.580 0.450-4.500 uIU/mL Urinalysis, Complete-[id number] Reviewed date:04/19/2024 08:17:49 AM Interpretation: Performing Lab:[facility], [address] [facility], Phone - [phone], Director - Michelle Notes/Report: Specific [place] 1.028 1.005-1.030 pH 5.5 5.0-7.5 Urine-Color Yellow Yellow Appearance Clear Clear WBC Esterase Negative Negative Protein 1+ Negative/Trace Glucose Negative Negative Ketones Trace Negative Occult Blood Negative Negative Bilirubin Negative Negative Urobilinogen,Semi-Qn 1.0 0.2-1.0 mg/dL Nitrite, Urine Negative Negative Microscopic Examination See below: Microscopic was indicated and was performed. WBC None seen 0 - 5 /hpf RBC 0-2 0 - 2 /hpf Epithelial Cells (non renal) None seen 0 - 10 /hpf Casts None seen None seen /lpf Bacteria None seen None seen/Few Hemoglobin [id number] Reviewed date:04/19/2024 08:17:19 AM Interpretation: Performing Lab:[facility]anna, [address] [facility], [place], Phone - [phone], Director - Michelle Notes/Report: Hemoglobin A1c 5.5 4.8-5.6 % . Prediabetes: 5.7 - 6.4 Diabetes: >6.4 Glycemic control for adults with diabetes: <7.0 XR SHOULDER 2+ VIEWS RIGHT Reviewed date:12/26/2024 01:10:56 PM Interpretation: Performing Lab: Notes/Report: Note See Note [facility], a member of [facility] Patient Name: LEE FLANNERY Date of : 1975 Reason for Exam: pain Exam Date: 12/26/2024 [id number] EST Report Status: Final Ordering Provider: MAURY MULLINS PCP: MAURY MULLINS HISTORY: The patient is a 49-year-old male with chronic pain in the right shoulder. No history of trauma is provided. FINDINGS: AP, right posterior oblique, and transscapular views of the right shoulder are obtained. The study demonstrates no fracture, dislocation, arthritic change, or other bony abnormality. No soft tissue abnormality is seen. IMPRESSION: Normal examination. Code 44650 -------- FINAL REPOR T -------- Dictated By: Jose Crandall Dictated Date: 12/26/2024 09:35 ET Assigned Physician: Jose Crandall Reviewed and Electronically Signed By: Jose Crandall Signed Date: 09:35 ET Workstation ID: [id number] Transcribed By: Self Edit Transcribed Date: 12/26/2024 09:35 ET XR ELBOW 3+ VIEWS RIGHT Reviewed date:12/26/2024 01:10:50 PM Interpretation: Performing Lab: Notes/Report: Note See Note [facility], a member of [facility] Patient Name: LEE FLANNERY Date of : 1975 Reason for Exam: pain Exam Date: 12/26/[id number] EST Report Status: Final Ordering Provider: MAURY MULLINS PCP: MAURY MULLINS HISTORY: The patient is a 49-year-old male with chronic pain in the right elbow for 6 months. No history of trauma is provided. FINDINGS: AP, latera l, and oblique views of the right elbow are obtained. The study demonstrates no fracture, dislocation, arthritic change, or other bony abnormality. No joint effusion or other soft tissue abnormality is seen. IMPRESSION: Normal examination. Code 62659 -------- FINAL REPOR T -------- Dictated By: Jose Crandall Dictated Date: 12/26/2024 09:35 ET Assigned Physician: Jose Crandall Reviewed and Electronically Signed By: Jose Crandall Signed Date: 09:36 ET Workstation ID: [id number] Transcribed By: Self Edit Transcribed Date: 12/26/2024 09:35 ET Reason For Referral Reason [facility] General Lalitha karyna Diagnosis 1 Umbilical hernia wit hout mention of obstruction or gangrene (K42.9) Referral Organization [facility] [address] Referring Provider First Name MAURY Referring Provider Last Name HARPREET Referring Provider Speciality Internal M edicine Referred Provider Specialty General Surg david General Notes Nellie Roblero 02/27/2024 09:47:04 AM > referral with form and attachment faxed, pt given info to call and schedule visit. [facility] General Surgery p: [phone] f: [phone] Clinical Notes Aruna Minaya 04:08:27 PM > The office confirmed receipt of referral. I spoke with the patient and provided [facility]'s phone number and he said he will call them Referral Priority Routine Diagnosis 1 Sleep apnea in adult (G47.30) Diagnosis 2 Snoring (R06.83) Referral Organization [facility] [address] Referring Provider First Name MAURY Referring Provider Last Name HARPREET Referring Provider Speciality Internal edicine Referred Provider Jamia Chacko Referred Provider Specialty Pulmonology General Notes Nellie Roblero 02/27/2024 10:06:44 AM > Referral with attachment faxed, pt given info to call and schedule visit. Clinical Notes Aruna Minaya 02:41:32 PM >I called the office, and they informed me that they do not accept [employer]. They advised us to send the referral to a different office, Aruna Minaya 11/01/2024 02:02:32 PM > refaxed to [phone], Aruna Minaya 11/14/2024 02:05:57 PM > The office confirmed receipt of referral and will be contacting the patient to schedule Referral Priority Routine Diagnosis 1 Sleep apnea in adult (G47.30) Diagnosis 2 Snoring (R06.83) Referral Organization [facility] [address] Referring Provider First Name MAURY Referring Provider Last Name HARPREET Referring Provider Speciality Internal edicine Referred Provider Balbir Sutton Referred Provider Specialty Pulmonology General Notes Mabel Morgan 025 08:20:18 AM > Referral faxed over with attachments to Dr Lesley Reece Referral Priority Routine Reason [facility] - Home Sleep Study Diagnosis 1 Snoring (R06.83) Diagnosis 2 Suspected sleep apne a (R29.818) Referral Organization [facility] [address] Referring Provider First Name MAURY Referring Provider Last Name HARPREET Referring Provider Speciality Internal edicine Referred Provider Specialty Pulmonology General Notes Payal Beebe 10/2024 10:05:48 AM > Referral form faxed to [phone] pt given phone [phone] Referral Priority Routine Reason [facility] Diagnosis 1 Right shoulder tendi nitis (M77.8) Referral Organization [facility] [address] Referring Provider First Name MAURY Referring Provider Last Name HARPREET Referring Provider Speciality Internal M edicine Referred Provider Specialty Orthopedic S urgery General Notes Payal Beebe 10/2024 10:23:14 AM > Referral form faxed to [phone] Referral Priority Routine Medications Medication SIG (Take, Route, Frequency, Duration) Notes Start Date End Date Status Omeprazole 40 MG 1 capsule 1/2 to 1 h our before morning meal Orally Once a day Active Multivitamin Active Vitamin D (Cholecalciferol) 50 MCG (1999) 1 capsule Orally Once a day; Duration: 30 days 04/23/2024 Active Rosuvastatin Calcium 10 MG TAKE 1 TABLET BY MOUTH EVERY DAY IN THE EVENING; Duration: 30 Active Naproxen 250 MG TAKE 1 TABLET BY JONNATHAN TH EVERY 12 HOURS WITH FOOD OR MILK FOR 30 DAYS NEEDED FOR PAIN; Duration: 30 Active Problems Problem Type SNOMED Code ICD Code Onset Dates Problem Status W/U Status Risk Notes Problem Snoring (87604140) Snoring (R06.83) Active conf irmed Problem Sciatica (95538154) Sciatica of right side (M54.31) Active confirmed Problem Obese class I (486921307082433) BMI 33.0-33.9,adult (Z68.33) Active confirmed Problem Sleep apnea (08918163) Sleep apnea in adult (G47.30) Active confirmed Problem Adult-onset obesity (859296548) Adult-onset obesity (E66.9) Active confirmed Problem Mixed hyperlipidemia (235824380) Hyperlipidemia, mixed (E78.2) Active confirmed Problem Avitaminosis D (00118478) Avitaminosis D (E55.9) Active confirmed Problem Gastroesophageal reflux disease (791121561) GERD (gastroesophageal reflux disease) (K21.9) Active confirmed Problem Hyperlipidemia (04222942) Hyperlipidemia (E78.5) Active confirmed Problem Vitamin D deficiency (96390181) Vitamin D insufficiency (E55.9) Active confirmed Vital Signs Heart Rate 99 /min 12/26/2024 Oximetry 98 % 12/26/2024 Blood pressure diastolic 84 mm Hg 12/26/2024 Height 65 in 12/26/2024 Blood pressure systolic 114 mm Hg 12/26/2024 Weight 198 lbs 12/26/2024 BMI 32.95 kg/m2 12/26/2024 Encounters Encounter Location Date Provider Diagnosis [facility] [address] [address] 09/04/2024 MAURY MULLINS [facility] [address] [address] 02/27/2024 MAURY MULLINS Periumbilical abdomi nal pain R10.33 ; Suspected sleep apnea R29.818 ; SOB (shortness of breath) R06.02 ; GERD without esophagitis K21.9 ; Sciatica of right side M54.31 ; Adult-onset obesity E66.9 and BMI 33.0-33.9,adult Z68.33 [facility] [address] [address] 04/23/2024 MAURY MULLINS Hyperlipidemia E78.5 ; Annual physical exam Z00.00 ; Arthritis pain, hip M16.10 ; Pain in joint of right ankle M25.571 ; Vitamin D insufficiency E55.9 ; Umbilical hernia without obstruction and without gangrene K42.9 ; Suspected sleep apnea R29.818 ; GERD without esophagitis K21.9 ; Adult-onset obesity E66.9 ; Chronic alcohol use F10.90 ; Depression screening Z13.31 and Screening for substance abuse Z13.89 [facility] [address] [address] 12/26/2024 MAURY MULLINS Right shoulder tendinitis M77.8 ; Right elbow pain M25.521 ; Snoring R06.83 ; Umbilical hernia without obstruction or gangrene K42.9 ; Hyperlipidemia, mixed E78.2 ; GERD (gastroesophageal reflux disease) K21.9 and Encounter for examination of blood pressure without abnormal findings Z01.30 [facility] [address] [address] 03/26/2024 MAURY MULLINS [facility] [address] [address] 04/24/2024 MAURY MULLINS [facility] [address] [address] 06/04/2024 MAURY MULLINS [facility] [address] [facility] [address] [place] [address] 12/04/2024 MAURY MULLINS [facility] [address] [facility] [address] [place] [address] 12/26/2024 MAURY MULLINS [facility] [address] [facility] [address] [place] [address] 01/16/2025 MAURY MULLINS Assessments Encounter Date Diagnosis (ICD Code) Assessment Notes Treatment Notes Treatment Clinical Notes Section Notes 02/27/2024 Periumbilical abdominal pain (ICD-10 - R10.33) Lee is a 48-year-old male who presents to the office today for new patient evaluation. Patient is welcomed to the practice. They are coming from [facility]. Last complete physical exam with labs before Covid-19 pandemic. Medications, medical history, allergies, surgeries, hospitalizations, family history, and social history were reviewed. Problem list updated. Cardiopulmonary and abdominal exam unremarkable. Patient will follow-up in office in approximately 4 weeks for CPE with labs. All patient questions answered at this time. # Abdominal pain: Patient presented to [facility] emergency department 12/26/2023 for acute abdominal pain localized in umbilical area, described as something burst in his abdomen. Acute concerns at that time included aortic aneurysm, dissection of aorta, gastric perforation, small bowel obstruction. Labs were performed including CBC showing mild leukocytosis of 11.7, chemistries unremarkable, urinalysis unremarkable, CT scan of abdomen/pelvis showing no acute process indicating abdominal pain and no evidence of aortic dissection. Patient then followed up with gastroenterology, imaging continuing to indicate no acute reason for abdominal pain, however clinical evaluation by Dr. Russell suggesting umbilical hernia. For further evaluation and assessment will refer to general surgery. Will continue to follow. # Sleep apnea: Reports history of snoring and several occasions of waking up feeling breathless. Has had sleep study done several years ago which was unremarkable at that time. Will refer to pulmonology for repeat sleep study and further intervention as deemed necessary. Will continue to follow. # Shortness of breath: Patient reports sensation of compression on his chest anytime that he bends over which then produces shortness of breath. Reports no history of asthma, COPD, or other respiratory disorder. Former smoker. On physical exam lungs are clear to auscultation without wheezing, stridor, rhonchi, or rales. Will refer to pulmonology for further testing including imaging as deemed necessary and pulmonary function testing. Will continue to follow. # GERD: Stable at this time. Continue omeprazole 40 mg half hour to 1 hour before morning meal. Discussed proper use of the medication and expected side effect profile including but not limited to abdominal pain, nausea, vomiting, diarrhea, and flatulence. Will continue to monitor. # Obesity: Weight 201.2 pounds, BMI 33.48. Discussed the importance of diet and lifestyle maintaining healthy weight for the patient and preventing other obesity related comorbidities. Will continue to monitor. # Sciatica: Patient reporting intermittent sensation of throbbing in his right leg which he believes consistent to be with sciatica. Pain waxes and wanes. Advised to use [id number] medications like NSAIDs to manage pain. Patient interested in seeing chiropractor for further evaluation and management. Discussed if pain worsens can consider MRI imaging of the spine and physical therapy. Will continue to follow. All questions have been answered to patient's satisfaction. Patient verbalized understanding of diagnosis and treatments explained. Advised to call sooner prior to next visit it any questions/concerns arise. Case discussed with collaborating physician Paras Reese who reviewed the assessment and plan. Chart, medications, labs, vital signs reviewed. Dictation was accomplished with the use of [employer] voice recognition software, which is prone to medical misidentifications and grammatical errors. This are unintentional and the practitioner does try to identify and correct these, but some could still be present. Please do not hesitate to contact practitioner for clarification. 02/27/2024 Suspected sleep apnea (ICD-10 - R29.818) Lee is a 48-year-old male who presents to the office today for new patient evaluation. Patient is welcomed to the practice. They are coming from [facility]. Last complete physical exam with labs before Covid-19 pandemic. Medications, medical history, allergies, surgeries, hospitalizations, family history, and social history were reviewed. Problem list updated. Cardiopulmonary and abdominal exam unremarkable. Patient will follow-up in office in approximately 4 weeks for CPE with labs. All patient questions answered at this time. # Abdominal pain: Patient presented to [facility] emergency department 12/26/2023 for acute abdominal pain localized in umbilical area, described as something burst in his abdomen. Acute concerns at that time included aortic aneurysm, dissection of aorta, gastric perforation, small bowel obstruction. Labs were performed including CBC showing mild leukocytosis of 11.7, chemistries unremarkable, urinalysis unremarkable, CT scan of abdomen/pelvis showing no acute process indicating abdominal pain and no evidence of aortic dissection. Patient then followed up with gastroenterology, imaging continuing to indicate no acute reason for abdominal pain, however clinical evaluation by Dr. Russell suggesting umbilical hernia. For further evaluation and assessment will refer to general surgery. Will continue to follow. # Sleep apnea: Reports history of snoring and several occasions of waking up feeling breathless. Has had sleep study done several years ago which was unremarkable at that time. Will refer to pulmonology for repeat sleep study and further intervention as deemed necessary. Will continue to follow. # Shortness of breath: Patient reports sensation of compression on his chest anytime that he bends over which then produces shortness of breath. Reports no history of asthma, COPD, or other respiratory disorder. Former smoker. On physical exam lungs are clear to auscultation without wheezing, stridor, rhonchi, or rales. Will refer to pulmonology for further testing including imaging as deemed necessary and pulmonary function testing. Will continue to follow. # GERD: Stable at this time. Continue omeprazole 40 mg half hour to 1 hour before morning meal. Discussed proper use of the medication and expected side effect profile including but not limited to abdominal pain, nausea, vomiting, diarrhea, and flatulence. Will continue to monitor. # Obesity: Weight 201.2 pounds, BMI 33.48. Discussed the importance of diet and lifestyle maintaining healthy weight for the patient and preventing other obesity related comorbidities. Will continue to monitor. # Sciatica: Patient reporting intermittent sensation of throbbing in his right leg which he believes consistent to be with sciatica. Pain waxes and wanes. Advised to use [id number]-[id number] medications like NSAIDs to manage pain. Patient interested in seeing chiropractor for further evaluation and management. Discussed if pain worsens can consider MRI imaging of the spine and physical therapy. Will continue to follow. All questions have been answered to patient's satisfaction. Patient verbalized understanding of diagnosis and treatments explained. Advised to call sooner prior to next visit it any questions/concerns arise. Case discussed with collaborating physician Paras Reese who reviewed the assessment and plan. Chart, medications, labs, vital signs reviewed. Dictation was accomplished with the use of [employer] voice recognition software, which is prone to medical misidentifications and grammatical errors. This are unintentional and the practitioner does try to identify and correct these, but some could still be present. Please do not hesitate to contact practitioner for clarification. 04/23/2024 Annual physical exam (ICD-10 - Z00.00) Patient seen and examined. Comprehensive discussion was done on the following. # Hyperlipidemia: Lipid panel on 04/18/2024 demonstrating cholesterol 200, triglycerides 370, HDL 34, and LDL 103. ASCVD risk calculator with recommendation for moderate intensity statin. Therefore we will begin rosuvastatin 10 mg once daily in the evening. Discussed proper use of the medication and potential side effect profile including but not limited to musculoskeletal pain and fatigue. Patient states he will also begin supplementation again with omega-3 fatty acids. Further discussed importance of fiber intake, solvents like turmeric, garlic, and vitamin D supplementation to further decrease cholesterol and prevent other comorbidities. Encourage physical activity. He will follow-up in office in 6 months with repeat lipid panel for further management. # Hip pain: Patient reporting chronic hip pain since his 20s, no injuries or trauma. Does have history of sciatica. At this time reporting increased pain when lying in both of his hips in bed. Today he is without numbness, tingling, or other paresthesias. No difficulty with ambulation. On physical exam positive findings including tenderness to right hip with passive internal rotation. Will treat symptomatically with naproxen 250 mg every 12 hours as needed for acute pain. Discussed proper use of the medication and present side effect profile including but not limited to dyspepsia, nausea, abdominal pain, constipation. Will continue to monitor. # Right ankle pain: History of injury to right ankle in December, was walking downstairs and missed the last 2 steps. Reports mechanism of rolling his ankle. Went to [place] ED for further management, on imaging found to have avulsion. Has not had follow-up with orthopedics, was scheduled to have MRI however did not go for imaging as pain was improving. However now pain has resumed, has some difficulty initiating few steps however no other pain or difficulty with ambulation. Advised the patient to follow-up with orthopedics for evaluation and to schedule MRI. Patient understanding, will continue to monitor. # Vitamin D insufficiency: Vitamin D level on 04/19/2024 at 23.9. Will prescribe vitamin D 50 mcg to be taken once daily. Will continue to monitor with updated labs. # Umbilical hernia: Patient presented to [facility] emergency department 12/26/2023 for acute abdominal pain localized in umbilical area, described as something burst in his abdomen. Acute concerns at that time included aortic aneurysm, dissection of aorta, gastric perforation, small bowel obstruction. Labs were performed including CBC showing mild leukocytosis of 11.7, chemistries unremarkable, urinalysis unremarkable, CT scan of abdomen/pelvis showing no acute process indicating abdominal pain and no evidence of aortic dissection. Patient then followed up with gastroenterology, imaging continuing to indicate no acute reason for abdominal pain, however clinical evaluation by Dr. Russell suggesting umbilical hernia. Patient has consultation scheduled with general surgery in April, will continue to follow. # Sleep apnea: Reports history of snoring and several occasions of waking up feeling breathless. Has had sleep study done several years ago which was unremarkable at that time. Will refer to pulmonology for repeat sleep study and further intervention as deemed necessary. Will continue to follow. # GERD: Continue omeprazole 40 mg 30 minutes to 1 hour before meal. Discussed proper use of the medication and potential side effect profile including but not limited to abdominal pain, nausea, vomiting, diarrhea, and flatulence. Will continue to monitor. # Obesity: Weight 199 pounds, BMI 33.11. Encourage lifestyle modifications including improving diet and increasing physical activity including cardiovascular exercise and resistance training 3 times weekly. Will continue to monitor at subsequent visits. # Alcohol misuse: AUDIT-C administered in office with score of 7. Reporting 4 more times per week where he may have Bever containing alcohol, 3-4 drinks in typical setting, and monthly occurrence where he may have 6 or more drinks in 1 occasion. Reports consumption of beer and/or hard liquor. LFTs within normal limits with AST 23, ALT 31. Discussed risks of chronic alcohol consumption. Will continue to monitor. 1. Nutrition: It is important to follow a healthy diet based on lots of vegetables and legumes and good fat. Avoid processed food and processed carbohydrates. Prepare your own meals. Read labels and avoid high fructose corn syrup, processed chemicals added to increase shelf life and preprepared meals. Avoid fast foods. Eat slowly and plan meals for a week. Try to count calories and be mindful of daily calorie intake. Get into the habit of keeping an eye on your weight by using an appropriate scale. Learn to log exercise and discussed fitness Apps like [employer] which can help keep log off calories taken versus calories burned. Local food should be preferred. Discussed Dirty Dozen Versus Clean Fifteen. Discussed healthy supplements like fish oil, Tumeric, Curcumin, Melatonin, Resveratrol, Probiotics, Vitamin-D, Alpha-Lipoic acid, Vitamin-D and coconut oil. 2. It is important to exercise regularly. Is a good habit to walk at least 30 minutes a day. Gentle weightlifting with standard precautions to protect the back. Finding activity like cycling or hiking and get into the habit of engaging in it. Stretching before and after the exercises important. It is also important to contact me if there are any problems like shortness of breath, chest pain, back pain and joint or muscle pain associated with the exercise. 3. Discussed age appropriate screening guidelines. Colonoscopy needs to start at age 50 with stool for occult blood as appropriate. There is a new test that can test for genetic abnormalities in the stool sample, Cologuard. This would not replace a colonoscopy but could be used as a screening tool for patients who do not want a colonoscopy. We discussed the importance of early detection of colon cancer. 4. Discussed current PSA screening. PSA screening can be done in most patients between age 50 and 65. However early detection of prostate cancer needs to carefully be balanced with complications with treatment. These include incontinence, impotence etc. Each patient should decide if they would like to have this test. 5. Discussed safe driving and no use of smart phone while driving 6. Age-appropriate immunizations were discussed. A tetanus booster is needed every 10 years. Flu vaccine is recommended every year just before the start of the flu season. Shingles vaccine is recommended after age 50 but not all insurances cover it. Pneumonia vaccine is given after age 65 unless there are certain comorbidities for which it is started earlier. 7. Diagnostic labs were discussed. These could include/not limited to CBC CMP and lipids with fasting blood glucose and insulin levels. Vitamin D and hemoglobin A1c testing might be appropriate. All questions have been answered to patient's satisfaction. Patient verbalized understanding of diagnosis and treatments explained. Advised to call sooner prior to next visit it any questions/concerns arise. Case discussed with collaborating physician Paras Reese who reviewed the assessment and plan. Chart, medications, labs, vital signs reviewed. Dictation was accomplished with the use of [employer] voice recognition software, which is prone to medical misidentifications and grammatical errors. This are unintentional and the practitioner does try to identify and correct these, but some could still be present. Please do not hesitate to contact practitioner for clarification. 04/23/2024 Hyperlipidemia (ICD-10 - E78.5) Patient seen and examined. Comprehensive discussion was done on the following. # Hyperlipidemia: Lipid panel on 04/18/2024 demonstrating cholesterol 200, triglycerides 370, HDL 34, and LDL 103. ASCVD risk calculator with recommendation for moderate intensity statin. Therefore we will begin rosuvastatin 10 mg once daily in the evening. Discussed proper use of the medication and potential side effect profile including but not limited to musculoskeletal pain and fatigue. Patient states he will also begin supplementation again with omega-3 fatty acids. Further discussed importance of fiber intake, solvents like turmeric, garlic, and vitamin D supplementation to further decrease cholesterol and prevent other comorbidities. Encourage physical activity. He will follow-up in office in 6 months with repeat lipid panel for further management. # Hip pain: Patient reporting chronic hip pain since his 20s, no injuries or trauma. Does have history of sciatica. At this time reporting increased pain when lying in both of his hips in bed. Today he is without numbness, tingling, or other paresthesias. No difficulty with ambulation. On physical exam positive findings including tenderness to right hip with passive internal rotation. Will treat symptomatically with naproxen 250 mg every 12 hours as needed for acute pain. Discussed proper use of the medication and present side effect profile including but not limited to dyspepsia, nausea, abdominal pain, constipation. Will continue to monitor. # Right ankle pain: History of injury to right ankle in December, was walking downstairs and missed the last 2 steps. Reports mechanism of rolling his ankle. Went to [place] ED for further management, on imaging found to have avulsion. Has not had follow-up with orthopedics, was scheduled to have MRI however did not go for imaging as pain was improving. However now pain has resumed, has some difficulty initiating few steps however no other pain or difficulty with ambulation. Advised the patient to follow-up with orthopedics for evaluation and to schedule MRI. Patient understanding, will continue to monitor. # Vitamin D insufficiency: Vitamin D level on 04/19/2024 at 23.9. Will prescribe vitamin D 50 mcg to be taken once daily. Will continue to monitor with updated labs. # Umbilical hernia: Patient presented to [facility] emergency department 12/26/2023 for acute abdominal pain localized in umbilical area, described as something burst in his abdomen. Acute concerns at that time included aortic aneurysm, dissection of aorta, gastric perforation, small bowel obstruction. Labs were performed including CBC showing mild leukocytosis of 11.7, chemistries unremarkable, urinalysis unremarkable, CT scan of abdomen/pelvis showing no acute process indicating abdominal pain and no evidence of aortic dissection. Patient then followed up with gastroenterology, imaging continuing to indicate no acute reason for abdominal pain, however clinical evaluation by Dr. Russell suggesting umbilical hernia. Patient has consultation scheduled with general surgery in April, will continue to follow. # Sleep apnea: Reports history of snoring and several occasions of waking up feeling breathless. Has had sleep study done several years ago which was unremarkable at that time. Will refer to pulmonology for repeat sleep study and further intervention as deemed necessary. Will continue to follow. # GERD: Continue omeprazole 40 mg 30 minutes to 1 hour before meal. Discussed proper use of the medication and potential side effect profile including but not limited to abdominal pain, nausea, vomiting, diarrhea, and flatulence. Will continue to monitor. # Obesity: Weight 199 pounds, BMI 33.11. Encourage lifestyle modifications including improving diet and increasing physical activity including cardiovascular exercise and resistance training 3 times weekly. Will continue to monitor at subsequent visits. # Alcohol misuse: AUDIT-C administered in office with score of 7. Reporting 4 more times per week where he may have Bever containing alcohol, 3-4 drinks in typical setting, and monthly occurrence where he may have 6 or more drinks in 1 occasion. Reports consumption of beer and/or hard liquor. LFTs within normal limits with AST 23, ALT 31. Discussed risks of chronic alcohol consumption. Will continue to monitor. 1. Nutrition: It is important to follow a healthy diet based on lots of vegetables and legumes and good fat. Avoid processed food and processed carbohydrates. Prepare your own meals. Read labels and avoid high fructose corn syrup, processed chemicals added to increase shelf life and preprepared meals. Avoid fast foods. Eat slowly and plan meals for a week. Try to count calories and be mindful of daily calorie intake. Get into the habit of keeping an eye on your weight by using an appropriate scale. Learn to log exercise and discussed fitness Apps like [employer] which can help keep log off calories taken versus calories burned. Local food should be preferred. Discussed Dirty Dozen Versus Clean Fifteen. Discussed healthy supplements like fish oil, Tumeric, Curcumin, Melatonin, Resveratrol, Probiotics, Vitamin-D, Alpha-Lipoic acid, Vitamin-D and coconut oil. 2. It is important to exercise regularly. Is a good habit to walk at least 30 minutes a day. Gentle weightlifting with standard precautions to protect the back. Finding activity like cycling or hiking and get into the habit of engaging in it. Stretching before and after the exercises important. It is also important to contact me if there are any problems like shortness of breath, chest pain, back pain and joint or muscle pain associated with the exercise. 3. Discussed age appropriate screening guidelines. Colonoscopy needs to start at age 50 with stool for occult blood as appropriate. There is a new test that can test for genetic abnormalities in the stool sample, Cologuard. This would not replace a colonoscopy but could be used as a screening tool for patients who do not want a colonoscopy. We discussed the importance of early detection of colon cancer. 4. Discussed current PSA screening. PSA screening can be done in most patients between age 50 and 65. However early detection of prostate cancer needs to carefully be balanced with complications with treatment. These include incontinence, impotence etc. Each patient should decide if they would like to have this test. 5. Discussed safe driving and no use of smart phone while driving 6. Age-appropriate immunizations were discussed. A tetanus booster is needed every 10 years. Flu vaccine is recommended every year just before the start of the flu season. Shingles vaccine is recommended after age 50 but not all insurances cover it. Pneumonia vaccine is given after age 65 unless there are certain comorbidities for which it is started earlier. 7. Diagnostic labs were discussed. These could include/not limited to CBC CMP and lipids with fasting blood glucose and insulin levels. Vitamin D and hemoglobin A1c testing might be appropriate. All questions have been answered to patient's satisfaction. Patient verbalized understanding of diagnosis and treatments explained. Advised to call sooner prior to next visit it any questions/concerns arise. Case discussed with collaborating physician Paras Reese who reviewed the assessment and plan. Chart, medications, labs, vital signs reviewed. Dictation was accomplished with the use of [employer] voice recognition software, which is prone to medical misidentifications and grammatical errors. This are unintentional and the practitioner does try to identify and correct these, but some could still be present. Please do not hesitate to contact practitioner for clarification. 12/26/2024 Right elbow pain (ICD-10 - M25.521) Lee is a 49-year-old male with history of hyperlipidemia, umbilical hernia now status post robotic repair with mesh, acid reflux, and vitamin D deficiency who presents today for routine follow-up. Medications reconciled. Problem list updated. Cardiopulmonary exam unremarkable. All patient questions answered this time. # Right shoulder/elbow pain: Patient reports chronic pain and limited range of motion in the right shoulder along with pain in the elbow and intermittent numbness traveling down extremity. Athlete growing up, playing golf and baseball. Also reports repetitive upper extremity movements with his job. No prior imaging. On exam there is no tenderness to palpation of the acromioclavicular joint, clavicle, sternoclavicular joint, or head of humerus. Tenderness with palpation of the right medial epicondyle of the elbow. Specialized testing including Romano sign and Rony liftoff is positive on right side. At this time plan will be to obtain an x-ray of the right shoulder and right elbow joint along with referral to orthopedics for further evaluation and management. Advised to continue NSAIDs for pain as needed. # Snoring: Patient with nightly snoring and unrestful sleep. Will obtain a home sleep study through [facility]. # Umbilical hernia: Patient is now status post robotic umbilical hernia repair with mesh performed by Dr. Tram Weiss on 11/30/2024. Had postop evaluation in 12/17/2024. No acute operative complications. Patient advised to avoid heavy lifting and strenuous activity for the following 4 weeks. Patient reports intermittent abdominal discomfort however continues to take Tylenol as needed. Regular bowel movements. Expected to have a follow-up visit with specialist in 1 month. # Hyperlipidemia: Lipid panel last updated 04/18/2024 with total cholesterol 200, triglycerides 370, HDL 34, LDL 103. Updated lipid panel pending. Continue rosuvastatin 10 mg daily. # Acid reflux: Continue omeprazole 40 mg once daily. # Vitamin D deficiency: Vitamin D level updated in March 2024 reduced at 23.9. Continue daily vitamin D supplementation. All questions have been answered to patient's satisfaction. Patient verbalized understanding of diagnosis and treatments explained. Advised to call sooner prior to next visit it any questions/concerns arise. Case discussed with collaborating physician Paras Reese who reviewed the assessment and plan. Chart, medications, labs, vital signs reviewed. Dictation was accomplished with the use of [employer] voice recognition software, which is prone to medical misidentifications and grammatical errors. This are unintentional and the practitioner does try to identify and correct these, but some could still be present. Please do not hesitate to contact practitioner for clarification. 12/26/2024 Right shoulder tendinitis (ICD-10 - M77.8) Lee is a 49-year-old male with history of hyperlipidemia, umbilical hernia now status post robotic repair with mesh, acid reflux, and vitamin D deficiency who presents today for routine follow-up. Medications reconciled. Problem list updated. Cardiopulmonary exam unremarkable. All patient questions answered this time. # Right shoulder/elbow pain: Patient reports chronic pain and limited range of motion in the right shoulder along with pain in the elbow and intermittent numbness traveling down extremity. Athlete growing up, playing golf and baseball. Also reports repetitive upper extremity movements with his job. No prior imaging. On exam there is no tenderness to palpation of the acromioclavicular joint, clavicle, sternoclavicular joint, or head of humerus. Tenderness with palpation of the right medial epicondyle of the elbow. Specialized testing including Romano sign and [place] liftoff is positive on right side. At this time plan will be to obtain an x-ray of the right shoulder and right elbow joint along with referral to orthopedics for further evaluation and management. Advised to continue NSAIDs for pain as needed. # Snoring: Patient with nightly snoring and unrestful sleep. Will obtain a home sleep study through [employer]. # Umbilical hernia: Patient is now status post robotic umbilical hernia repair with mesh performed by Dr. Tram Weiss on 11/30/2024. Had postop evaluation in 12/17/2024. No acute operative complications. Patient advised to avoid heavy lifting and strenuous activity for the following 4 weeks. Patient reports intermittent abdominal discomfort however continues to take Tylenol as needed. Regular bowel movements. Expected to have a follow-up visit with specialist in 1 month. # Hyperlipidemia: Lipid panel last updated 04/18/2024 with total cholesterol 200, triglycerides 370, HDL 34, LDL 103. Updated lipid panel pending. Continue rosuvastatin 10 mg daily. # Acid reflux: Continue omeprazole 40 mg once daily. # Vitamin D deficiency: Vitamin D level updated in March 2024 reduced at 23.9. Continue daily vitamin D supplementation. All questions have been answered to patient's satisfaction. Patient verbalized understanding of diagnosis and treatments explained. Advised to call sooner prior to next visit it any questions/concerns arise. Case discussed with collaborating physician Paras Reese who reviewed the assessment and plan. Chart, medications, labs, vital signs reviewed. Dictation was accomplished with the use of [employer] voice recognition software, which is prone to medical misidentifications and grammatical errors. This are unintentional and the practitioner does try to identify and correct these, but some could still be present. Please do not hesitate to contact practitioner for clarification. 12/26/2024 Snoring (ICD-10 - R06.83) Lee is a 49-year-old male with history of hyperlipidemia, umbilical hernia now status post robotic repair with mesh, acid reflux, and vitamin D deficiency who presents today for routine follow-up. Medications reconciled. Problem list updated. Cardiopulmonary exam unremarkable. All patient questions answered this time. # Right shoulder/elbow pain: Patient reports chronic pain and limited range of motion in the right shoulder along with pain in the elbow and intermittent numbness traveling down extremity. Athlete growing up, playing golf and baseball. Also reports repetitive upper extremity movements with his job. No prior imaging. On exam there is no tenderness to palpation of the acromioclavicular joint, clavicle, sternoclavicular joint, or head of humerus. Tenderness with palpation of the right medial epicondyle of the elbow. Specialized testing including Romano sign and [place] liftoff is positive on right side. At this time plan will be to obtain an x-ray of the right shoulder and right elbow joint along with referral to orthopedics for further evaluation and management. Advised to continue NSAIDs for pain as needed. # Snoring: Patient with nightly snoring and unrestful sleep. Will obtain a home sleep study through [facility]. # Umbilical hernia: Patient is now status post robotic umbilical hernia repair with mesh performed by Dr. Tram Weiss on 11/30/2024. Had postop evaluation in 12/17/2024. No acute operative complications. Patient advised to avoid heavy lifting and strenuous activity for the following 4 weeks. Patient reports intermittent abdominal discomfort however continues to take Tylenol as needed. Regular bowel movements. Expected to have a follow-up visit with specialist in 1 month. # Hyperlipidemia: Lipid panel last updated 04/18/2024 with total cholesterol 200, triglycerides 370, HDL 34, LDL 103. Updated lipid panel pending. Continue rosuvastatin 10 mg daily. # Acid reflux: Continue omeprazole 40 mg once daily. # Vitamin D deficiency: Vitamin D level updated in March 2024 reduced at 23.9. Continue daily vitamin D supplementation. All questions have been answered to patient's satisfaction. Patient verbalized understanding of diagnosis and treatments explained. Advised to call sooner prior to next visit it any questions/concerns arise. Case discussed with collaborating physician Paras Reese who reviewed the assessment and plan. Chart, medications, labs, vital signs reviewed. Dictation was accomplished with the use of [employer] voice recognition software, which is prone to medical misidentifications and grammatical errors. This are unintentional and the practitioner does try to identify and correct these, but some could still be present. Please do not hesitate to contact practitioner for clarification. 04/23/2024 Arthritis pain, hip (ICD-10 - M16.10) Patient seen and examined. Comprehensive discussion was done on the following. # Hyperlipidemia: Lipid panel on 04/18/2024 demonstrating cholesterol 200, triglycerides 370, HDL 34, and LDL 103. ASCVD risk calculator with recommendation for moderate intensity statin. Therefore we will begin rosuvastatin 10 mg once daily in the evening. Discussed proper use of the medication and potential side effect profile including but not limited to musculoskeletal pain and fatigue. Patient states he will also begin supplementation again with omega-3 fatty acids. Further discussed importance of fiber intake, solvents like turmeric, garlic, and vitamin D supplementation to further decrease cholesterol and prevent other comorbidities. Encourage physical activity. He will follow-up in office in 6 months with repeat lipid panel for further management. # Hip pain: Patient reporting chronic hip pain since his 20s, no injuries or trauma. Does have history of sciatica. At this time reporting increased pain when lying in both of his hips in bed. Today he is without numbness, tingling, or other paresthesias. No difficulty with ambulation. On physical exam positive findings including tenderness to right hip with passive internal rotation. Will treat symptomatically with naproxen 250 mg every 12 hours as needed for acute pain. Discussed proper use of the medication and present side effect profile including but not limited to dyspepsia, nausea, abdominal pain, constipation. Will continue to monitor. # Right ankle pain: History of injury to right ankle in December, was walking downstairs and missed the last 2 steps. Reports mechanism of rolling his ankle. Went to [place] ED for further management, on imaging found to have avulsion. Has not had follow-up with orthopedics, was scheduled to have MRI however did not go for imaging as pain was improving. However now pain has resumed, has some difficulty initiating few steps however no other pain or difficulty with ambulation. Advised the patient to follow-up with orthopedics for evaluation and to schedule MRI. Patient understanding, will continue to monitor. # Vitamin D insufficiency: Vitamin D level on 04/19/2024 at 23.9. Will prescribe vitamin D 50 mcg to be taken once daily. Will continue to monitor with updated labs. # Umbilical hernia: Patient presented to [facility] emergency department 12/26/2023 for acute abdominal pain localized in umbilical area, described as something burst in his abdomen. Acute concerns at that time included aortic aneurysm, dissection of aorta, gastric perforation, small bowel obstruction. Labs were performed including CBC showing mild leukocytosis of 11.7, chemistries unremarkable, urinalysis unremarkable, CT scan of abdomen/pelvis showing no acute process indicating abdominal pain and no evidence of aortic dissection. Patient then followed up with gastroenterology, imaging continuing to indicate no acute reason for abdominal pain, however clinical evaluation by Dr. Russell suggesting umbilical hernia. Patient has consultation scheduled with general surgery in April, will continue to follow. # Sleep apnea: Reports history of snoring and several occasions of waking up feeling breathless. Has had sleep study done several years ago which was unremarkable at that time. Will refer to pulmonology for repeat sleep study and further intervention as deemed necessary. Will continue to follow. # GERD: Continue omeprazole 40 mg 30 minutes to 1 hour before meal. Discussed proper use of the medication and potential side effect profile including but not limited to abdominal pain, nausea, vomiting, diarrhea, and flatulence. Will continue to monitor. # Obesity: Weight 199 pounds, BMI 33.11. Encourage lifestyle modifications including improving diet and increasing physical activity including cardiovascular exercise and resistance training 3 times weekly. Will continue to monitor at subsequent visits. # Alcohol misuse: AUDIT-C administered in office with score of 7. Reporting 4 more times per week where he may have Bever containing alcohol, 3-4 drinks in typical setting, and monthly occurrence where he may have 6 or more drinks in 1 occasion. Reports consumption of beer and/or hard liquor. LFTs within normal limits with AST 23, ALT 31. Discussed risks of chronic alcohol consumption. Will continue to monitor. 1. Nutrition: It is important to follow a healthy diet based on lots of vegetables and legumes and good fat. Avoid processed food and processed carbohydrates. Prepare your own meals. Read labels and avoid high fructose corn syrup, processed chemicals added to increase shelf life and preprepared meals. Avoid fast foods. Eat slowly and plan meals for a week. Try to count calories and be mindful of daily calorie intake. Get into the habit of keeping an eye on your weight by using an appropriate scale. Learn to log exercise and discussed fitness Apps like [employer] which can help keep log off calories taken versus calories burned. Local food should be preferred. Discussed Dirty Dozen Versus Clean Fifteen. Discussed healthy supplements like fish oil, Tumeric, Curcumin, Melatonin, Resveratrol, Probiotics, Vitamin-D, Alpha-Lipoic acid, Vitamin-D and coconut oil. 2. It is important to exercise regularly. Is a good habit to walk at least 30 minutes a day. Gentle weightlifting with standard precautions to protect the back. Finding activity like cycling or hiking and get into the habit of engaging in it. Stretching before and after the exercises important. It is also important to contact me if there are any problems like shortness of breath, chest pain, back pain and joint or muscle pain associated with the exercise. 3. Discussed age appropriate screening guidelines. Colonoscopy needs to start at age 50 with stool for occult blood as appropriate. There is a new test that can test for genetic abnormalities in the stool sample, Cologuard. This would not replace a colonoscopy but could be used as a screening tool for patients who do not want a colonoscopy. We discussed the importance of early detection of colon cancer. 4. Discussed current PSA screening. PSA screening can be done in most patients between age 50 and 65. However early detection of prostate cancer needs to carefully be balanced with complications with treatment. These include incontinence, impotence etc. Each patient should decide if they would like to have this test. 5. Discussed safe driving and no use of smart phone while driving 6. Age-appropriate immunizations were discussed. A tetanus booster is needed every 10 years. Flu vaccine is recommended every year just before the start of the flu season. Shingles vaccine is recommended after age 50 but not all insurances cover it. Pneumonia vaccine is given after age 65 unless there are certain comorbidities for which it is started earlier. 7. Diagnostic labs were discussed. These could include/not limited to CBC CMP and lipids with fasting blood glucose and insulin levels. Vitamin D and hemoglobin A1c testing might be appropriate. All questions have been answered to patient's satisfaction. Patient verbalized understanding of diagnosis and treatments explained. Advised to call sooner prior to next visit it any questions/concerns arise. Case discussed with collaborating physician Paras Reese who reviewed the assessment and plan. Chart, medications, labs, vital signs reviewed. Dictation was accomplished with the use of [employer] voice recognition software, which is prone to medical misidentifications and grammatical errors. This are unintentional and the practitioner does try to identify and correct these, but some could still be present. Please do not hesitate to contact practitioner for clarification. 02/27/2024 SOB (shortness of breath) (ICD-10 - R06.02) Lee is a 48-year-old male who presents to the office today for new patient evaluation. Patient is welcomed to the practice. They are coming from [facility]. Last complete physical exam with labs before Covid-19 pandemic. Medications, medical history, allergies, surgeries, hospitalizations, family history, and social history were reviewed. Problem list updated. Cardiopulmonary and abdominal exam unremarkable. Patient will follow-up in office in approximately 4 weeks for CPE with labs. All patient questions answered at this time. # Abdominal pain: Patient presented to [facility] emergency department 12/26/2023 for acute abdominal pain localized in umbilical area, described as something burst in his abdomen. Acute concerns at that time included aortic aneurysm, dissection of aorta, gastric perforation, small bowel obstruction. Labs were performed including CBC showing mild leukocytosis of 11.7, chemistries unremarkable, urinalysis unremarkable, CT scan of abdomen/pelvis showing no acute process indicating abdominal pain and no evidence of aortic dissection. Patient then followed up with gastroenterology, imaging continuing to indicate no acute reason for abdominal pain, however clinical evaluation by Dr. Russell suggesting umbilical hernia. For further evaluation and assessment will refer to general surgery. Will continue to follow. # Sleep apnea: Reports history of snoring and several occasions of waking up feeling breathless. Has had sleep study done several years ago which was unremarkable at that time. Will refer to pulmonology for repeat sleep study and further intervention as deemed necessary. Will continue to follow. # Shortness of breath: Patient reports sensation of compression on his chest anytime that he bends over which then produces shortness of breath. Reports no history of asthma, COPD, or other respiratory disorder. Former smoker. On physical exam lungs are clear to auscultation without wheezing, stridor, rhonchi, or rales. Will refer to pulmonology for further testing including imaging as deemed necessary and pulmonary function testing. Will continue to follow. # GERD: Stable at this time. Continue omeprazole 40 mg half hour to 1 hour before morning meal. Discussed proper use of the medication and expected side effect profile including but not limited to abdominal pain, nausea, vomiting, diarrhea, and flatulence. Will continue to monitor. # Obesity: Weight 201.2 pounds, BMI 33.48. Discussed the importance of diet and lifestyle maintaining healthy weight for the patient and preventing other obesity related comorbidities. Will continue to monitor. # Sciatica: Patient reporting intermittent sensation of throbbing in his right leg which he believes consistent to be with sciatica. Pain waxes and wanes. Advised to use [id number]-coftahe medications like NSAIDs to manage pain. Patient interested in seeing chiropractor for further evaluation and management. Discussed if pain worsens can consider MRI imaging of the spine and physical therapy. Will continue to follow. All questions have been answered to patient's satisfaction. Patient verbalized understanding of diagnosis and treatments explained. Advised to call sooner prior to next visit it any questions/concerns arise. Case discussed with collaborating physician Paras Reese who reviewed the assessment and plan. Chart, medications, labs, vital signs reviewed. Dictation was accomplished with the use of [employer] voice recognition software, which is prone to medical misidentifications and grammatical errors. This are unintentional and the practitioner does try to identify and correct these, but some could still be present. Please do not hesitate to contact practitioner for clarification. 04/23/2024 Pain in joint of right ankle (ICD-10 - M25.571) Patient seen and examined. Comprehensive discussion was done on the following. # Hyperlipidemia: Lipid panel on 04/18/2024 demonstrating cholesterol 200, triglycerides 370, HDL 34, and LDL 103. ASCVD risk calculator with recommendation for moderate intensity statin. Therefore we will begin rosuvastatin 10 mg once daily in the evening. Discussed proper use of the medication and potential side effect profile including but not limited to musculoskeletal pain and fatigue. Patient states he will also begin supplementation again with omega-3 fatty acids. Further discussed importance of fiber intake, solvents like turmeric, garlic, and vitamin D supplementation to further decrease cholesterol and prevent other comorbidities. Encourage physical activity. He will follow-up in office in 6 months with repeat lipid panel for further management. # Hip pain: Patient reporting chronic hip pain since his 20s, no injuries or trauma. Does have history of sciatica. At this time reporting increased pain when lying in both of his hips in bed. Today he is without numbness, tingling, or other paresthesias. No difficulty with ambulation. On physical exam positive findings including tenderness to right hip with passive internal rotation. Will treat symptomatically with naproxen 250 mg every 12 hours as needed for acute pain. Discussed proper use of the medication and present side effect profile including but not limited to dyspepsia, nausea, abdominal pain, constipation. Will continue to monitor. # Right ankle pain: History of injury to right ankle in December, was walking downstairs and missed the last 2 steps. Reports mechanism of rolling his ankle. Went to [place] ED for further management, on imaging found to have avulsion. Has not had follow-up with orthopedics, was scheduled to have MRI however did not go for imaging as pain was improving. However now pain has resumed, has some difficulty initiating few steps however no other pain or difficulty with ambulation. Advised the patient to follow-up with orthopedics for evaluation and to schedule MRI. Patient understanding, will continue to monitor. # Vitamin D insufficiency: Vitamin D level on 04/19/2024 at 23.9. Will prescribe vitamin D 50 mcg to be taken once daily. Will continue to monitor with updated labs. # Umbilical hernia: Patient presented to [facility] emergency department 12/26/2023 for acute abdominal pain localized in umbilical area, described as something burst in his abdomen. Acute concerns at that time included aortic aneurysm, dissection of aorta, gastric perforation, small bowel obstruction. Labs were performed including CBC showing mild leukocytosis of 11.7, chemistries unremarkable, urinalysis unremarkable, CT scan of abdomen/pelvis showing no acute process indicating abdominal pain and no evidence of aortic dissection. Patient then followed up with gastroenterology, imaging continuing to indicate no acute reason for abdominal pain, however clinical evaluation by Dr. Russell suggesting umbilical hernia. Patient has consultation scheduled with general surgery in April, will continue to follow. # Sleep apnea: Reports history of snoring and several occasions of waking up feeling breathless. Has had sleep study done several years ago which was unremarkable at that time. Will refer to pulmonology for repeat sleep study and further intervention as deemed necessary. Will continue to follow. # GERD: Continue omeprazole 40 mg 30 minutes to 1 hour before meal. Discussed proper use of the medication and potential side effect profile including but not limited to abdominal pain, nausea, vomiting, diarrhea, and flatulence. Will continue to monitor. # Obesity: Weight 199 pounds, BMI 33.11. Encourage lifestyle modifications including improving diet and increasing physical activity including cardiovascular exercise and resistance training 3 times weekly. Will continue to monitor at subsequent visits. # Alcohol misuse: AUDIT-C administered in office with score of 7. Reporting 4 more times per week where he may have Bever containing alcohol, 3-4 drinks in typical setting, and monthly occurrence where he may have 6 or more drinks in 1 occasion. Reports consumption of beer and/or hard liquor. LFTs within normal limits with AST 23, ALT 31. Discussed risks of chronic alcohol consumption. Will continue to monitor. 1. Nutrition: It is important to follow a healthy diet based on lots of vegetables and legumes and good fat. Avoid processed food and processed carbohydrates. Prepare your own meals. Read labels and avoid high fructose corn syrup, processed chemicals added to increase shelf life and preprepared meals. Avoid fast foods. Eat slowly and plan meals for a week. Try to count calories and be mindful of daily calorie intake. Get into the habit of keeping an eye on your weight by using an appropriate scale. Learn to log exercise and discussed fitness Apps like [employer] which can help keep log off calories taken versus calories burned. Local food should be preferred. Discussed Dirty Dozen Versus Clean Fifteen. Discussed healthy supplements like fish oil, Tumeric, Curcumin, Melatonin, Resveratrol, Probiotics, Vitamin-D, Alpha-Lipoic acid, Vitamin-D and coconut oil. 2. It is important to exercise regularly. Is a good habit to walk at least 30 minutes a day. Gentle weightlifting with standard precautions to protect the back. Finding activity like cycling or hiking and get into the habit of engaging in it. Stretching before and after the exercises important. It is also important to contact me if there are any problems like shortness of breath, chest pain, back pain and joint or muscle pain associated with the exercise. 3. Discussed age appropriate screening guidelines. Colonoscopy needs to start at age 50 with stool for occult blood as appropriate. There is a new test that can test for genetic abnormalities in the stool sample, Cologuard. This would not replace a colonoscopy but could be used as a screening tool for patients who do not want a colonoscopy. We discussed the importance of early detection of colon cancer. 4. Discussed current PSA screening. PSA screening can be done in most patients between age 50 and 65. However early detection of prostate cancer needs to carefully be balanced with complications with treatment. These include incontinence, impotence etc. Each patient should decide if they would like to have this test. 5. Discussed safe driving and no use of smart phone while driving 6. Age-appropriate immunizations were discussed. A tetanus booster is needed every 10 years. Flu vaccine is recommended every year just before the start of the flu season. Shingles vaccine is recommended after age 50 but not all insurances cover it. Pneumonia vaccine is given after age 65 unless there are certain comorbidities for which it is started earlier. 7. Diagnostic labs were discussed. These could include/not limited to CBC CMP and lipids with fasting blood glucose and insulin levels. Vitamin D and hemoglobin A1c testing might be appropriate. All questions have been answered to patient's [...] not hesitate to contact practitioner for clarification. 12/26/2024 Umbilical hernia without obstruction or gangrene (ICD-10 - K42.9) Lee is a 49-year-old male with history of hyperlipidemia, umbilical hernia now status post robotic repair with mesh, acid reflux, and vitamin D deficiency who presents today for routine follow-up. Medications reconciled. Problem list updated. Cardiopulmonary exam unremarkable. All patient questions answered this time. # Right shoulder/elbow pain: Patient reports chronic pain and limited range of motion in the right shoulder along with pain in the elbow and intermittent numbness traveling down extremity. Athlete growing up, playing golf and baseball. Also reports repetitive upper extremity movements with his job. No prior imaging. On exam there is no tenderness to palpation of the acromioclavicular joint, clavicle, sternoclavicular joint, or head of humerus. Tenderness with palpation of the right medial epicondyle of the elbow. Specialized testing including Romano sign and [place] liftoff is positive on right side. At this time plan will be to obtain an x-ray of the right shoulder and right elbow joint along with referral to orthopedics for further evaluation and management. Advised to continue NSAIDs for pain as needed. # Snoring: Patient with nightly snoring and unrestful sleep. Will obtain a home sleep study through [facility]. # Umbilical hernia: Patient is now status post robotic umbilical hernia repair with mesh performed by Dr. Tram Weiss on 11/30/2024. Had postop evaluation in 12/17/2024. No acute operative complications. Patient advised to avoid heavy lifting and strenuous activity for the following 4 weeks. Patient reports intermittent abdominal discomfort however continues to take Tylenol as needed. Regular bowel movements. Expected to have a follow-up visit with specialist in 1 month. # Hyperlipidemia: Lipid panel last updated 04/18/2024 with total cholesterol 200, triglycerides 370, HDL 34, LDL 103. Updated lipid panel pending. Continue rosuvastatin 10 mg daily. # Acid reflux: Continue omeprazole 40 mg once daily. # Vitamin D deficiency: Vitamin D level updated in March 2024 reduced at 23.9. Continue daily vitamin D supplementation. All questions have been answered to patient's satisfaction. Patient verbalized understanding of diagnosis and treatments explained. Advised to call sooner prior to next visit it any questions/concerns arise. Case discussed with collaborating physician Paras Reese who reviewed the assessment and plan. Chart, medications, labs, vital signs reviewed. Dictation was accomplished with the use of [employer] voice recognition software, which is prone to medical misidentifications and grammatical errors. This are unintentional and the practitioner does try to identify and correct these, but some could still be present. Please do not hesitate to contact practitioner for clarification. 02/27/2024 GERD without esophagitis (ICD-10 - K21.9) Lee is a 48-year-old male who presents to the office today for new patient evaluation. Patient is welcomed to the practice. They are coming from [facility]. Last complete physical exam with labs before Covid-19 pandemic. Medications, medical history, allergies, surgeries, hospitalizations, family history, and social history were reviewed. Problem list updated. Cardiopulmonary and abdominal exam unremarkable. Patient will follow-up in office in approximately 4 weeks for CPE with labs. All patient questions answered at this time. # Abdominal pain: Patient presented to [facility] emergency department 12/26/2023 for acute abdominal pain localized in umbilical area, described as something burst in his abdomen. Acute concerns at that time included aortic aneurysm, dissection of aorta, gastric perforation, small bowel obstruction. Labs were performed including CBC showing mild leukocytosis of 11.7, chemistries unremarkable, urinalysis unremarkable, CT scan of abdomen/pelvis showing no acute process indicating abdominal pain and no evidence of aortic dissection. Patient then followed up with gastroenterology, imaging continuing to indicate no acute reason for abdominal pain, however clinical evaluation by Dr. Russell suggesting umbilical hernia. For further evaluation and assessment will refer to general surgery. Will continue to follow. # Sleep apnea: Reports history of snoring and several occasions of waking up feeling breathless. Has had sleep study done several years ago which was unremarkable at that time. Will refer to pulmonology for repeat sleep study and further intervention as deemed necessary. Will continue to follow. # Shortness of breath: Patient reports sensation of compression on his chest anytime that he bends over which then produces shortness of breath. Reports no history of asthma, COPD, or other respiratory disorder. Former smoker. On physical exam lungs are clear to auscultation without wheezing, stridor, rhonchi, or rales. Will refer to pulmonology for further testing including imaging as deemed necessary and pulmonary function testing. Will continue to follow. # GERD: Stable at this time. Continue omeprazole 40 mg half hour to 1 hour before morning meal. Discussed proper use of the medication and expected side effect profile including but not limited to abdominal pain, nausea, vomiting, diarrhea, and flatulence. Will continue to monitor. # Obesity: Weight 201.2 pounds, BMI 33.48. Discussed the importance of diet and lifestyle maintaining healthy weight for the patient and preventing other obesity related comorbidities. Will continue to monitor. # Sciatica: Patient reporting intermittent sensation of throbbing in his right leg which he believes consistent to be with sciatica. Pain waxes and wanes. Advised to use [id number]-oaydzat medications like NSAIDs to manage pain. Patient interested in seeing chiropractor for further evaluation and management. Discussed if pain worsens can consider MRI imaging of the spine and physical therapy. Will continue to follow. All questions have been answered to patient's satisfaction. Patient verbalized understanding of diagnosis and treatments explained. Advised to call sooner prior to next visit it any questions/concerns arise. Case discussed with collaborating physician Paras Reese who reviewed the assessment and plan. Chart, medications, labs, vital signs reviewed. Dictation was accomplished with the use of [employer] voice recognition software, which is prone to medical misidentifications and grammatical errors. This are unintentional and the practitioner does try to identify and correct these, but some could still be present. Please do not hesitate to contact practitioner for clarification. 12/26/2024 Hyperlipidemia, mixed (ICD-10 - E78.2) Lee is a 49-year-old male with history of hyperlipidemia, umbilical hernia now status post robotic repair with mesh, acid reflux, and vitamin D deficiency who presents today for routine follow-up. Medications reconciled. Problem list updated. Cardiopulmonary exam unremarkable. All patient questions answered this time. # Right shoulder/elbow pain: Patient reports chronic pain and limited range of motion in the right shoulder along with pain in the elbow and intermittent numbness traveling down extremity. Athlete growing up, playing golf and baseball. Also reports repetitive upper extremity movements with his job. No prior imaging. On exam there is no tenderness to palpation of the acromioclavicular joint, clavicle, sternoclavicular joint, or head of humerus. Tenderness with palpation of the right medial epicondyle of the elbow. Specialized testing including Romano sign and [place] liftoff is positive on right side. At this time plan will be to obtain an x-ray of the right shoulder and right elbow joint along with referral to orthopedics for further evaluation and management. Advised to continue NSAIDs for pain as needed. # Snoring: Patient with nightly snoring and unrestful sleep. Will obtain a home sleep study through [facility]. # Umbilical hernia: Patient is now status post robotic umbilical hernia repair with mesh performed by Dr. Tram Weiss on 11/30/2024. Had postop evaluation in 12/17/2024. No acute operative complications. Patient advised to avoid heavy lifting and strenuous activity for the following 4 weeks. Patient reports intermittent abdominal discomfort however continues to take Tylenol as needed. Regular bowel movements. Expected to have a follow-up visit with specialist in 1 month. # Hyperlipidemia: Lipid panel last updated 04/18/2024 with total cholesterol 200, triglycerides 370, HDL 34, LDL 103. Updated lipid panel pending. Continue rosuvastatin 10 mg daily. # Acid reflux: Continue omeprazole 40 mg once daily. # Vitamin D deficiency: Vitamin D level updated in March 2024 reduced at 23.9. Continue daily vitamin D supplementation. All questions have been answered to patient's satisfaction. Patient verbalized understanding of diagnosis and treatments explained. Advised to call sooner prior to next visit it any questions/concerns arise. Case discussed with collaborating physician Paras Reese who reviewed the assessment and plan. Chart, medications, labs, vital signs reviewed. Dictation was accomplished with the use of [employer] voice recognition software, which is prone to medical misidentifications and grammatical errors. This are unintentional and the practitioner does try to identify and correct these, but some could still be present. Please do not hesitate to contact practitioner for clarification. 04/23/2024 Vitamin D insufficiency (ICD-10 - E55.9) Patient seen and examined. Comprehensive discussion was done on the following. # Hyperlipidemia: Lipid panel on 04/18/2024 demonstrating cholesterol 200, triglycerides 370, HDL 34, and LDL 103. ASCVD risk calculator with recommendation for moderate intensity statin. Therefore we will begin rosuvastatin 10 mg once daily in the evening. Discussed proper use of the medication and potential side effect profile including but not limited to musculoskeletal pain and fatigue. Patient states he will also begin supplementation again with omega-3 fatty acids. Further discussed importance of fiber intake, solvents like turmeric, garlic, and vitamin D supplementation to further decrease cholesterol and prevent other comorbidities. Encourage physical activity. He will follow-up in office in 6 months with repeat lipid panel for further management. # Hip pain: Patient reporting chronic hip pain since his 20s, no injuries or trauma. Does have history of sciatica. At this time reporting increased pain when lying in both of his hips in bed. Today he is without numbness, tingling, or other paresthesias. No difficulty with ambulation. On physical exam positive findings including tenderness to right hip with passive internal rotation. Will treat symptomatically with naproxen 250 mg every 12 hours as needed for acute pain. Discussed proper use of the medication and present side effect profile including but not limited to dyspepsia, nausea, abdominal pain, constipation. Will continue to monitor. # Right ankle pain: History of injury to right ankle in December, was walking downstairs and missed the last 2 steps. Reports mechanism of rolling his ankle. Went to [place] ED for further management, on imaging found to have avulsion. Has not had follow-up with orthopedics, was scheduled to have MRI however did not go for imaging as pain was improving. However now pain has resumed, has some difficulty initiating few steps however no other pain or difficulty with ambulation. Advised the patient to follow-up with orthopedics for evaluation and to schedule MRI. Patient understanding, will continue to monitor. # Vitamin D insufficiency: Vitamin D level on 04/19/2024 at 23.9. Will prescribe vitamin D 50 mcg to be taken once daily. Will continue to monitor with updated labs. # Umbilical hernia: Patient presented to [facility] emergency department 12/26/2023 for acute abdominal pain localized in umbilical area, described as something burst in his abdomen. Acute concerns at that time included aortic aneurysm, dissection of aorta, gastric perforation, small bowel obstruction. Labs were performed including CBC showing mild leukocytosis of 11.7, chemistries unremarkable, urinalysis unremarkable, CT scan of abdomen/pelvis showing no acute process indicating abdominal pain and no evidence of aortic dissection. Patient then followed up with gastroenterology, imaging continuing to indicate no acute reason for abdominal pain, however clinical evaluation by Dr. Russell suggesting umbilical hernia. Patient has consultation scheduled with general surgery in April, will continue to follow. # Sleep apnea: Reports history of snoring and several occasions of waking up feeling breathless. Has had sleep study done several years ago which was unremarkable at that time. Will refer to pulmonology for repeat sleep study and further intervention as deemed necessary. Will continue to follow. # GERD: Continue omeprazole 40 mg 30 minutes to 1 hour before meal. Discussed proper use of the medication and potential side effect profile including but not limited to abdominal pain, nausea, vomiting, diarrhea, and flatulence. Will continue to monitor. # Obesity: Weight 199 pounds, BMI 33.11. Encourage lifestyle modifications including improving diet and increasing physical activity including cardiovascular exercise and resistance training 3 times weekly. Will continue to monitor at subsequent visits. # Alcohol misuse: AUDIT-C administered in office with score of 7. Reporting 4 more times per week where he may have Bever containing alcohol, 3-4 drinks in typical setting, and monthly occurrence where he may have 6 or more drinks in 1 occasion. Reports consumption of beer and/or hard liquor. LFTs within normal limits with AST 23, ALT 31. Discussed risks of chronic alcohol consumption. Will continue to monitor. 1. Nutrition: It is important to follow a healthy diet based on lots of vegetables and legumes and good fat. Avoid processed food and processed carbohydrates. Prepare your own meals. Read labels and avoid high fructose corn syrup, processed chemicals added to increase shelf life and preprepared meals. Avoid fast foods. Eat slowly and plan meals for a week. Try to count calories and be mindful of daily calorie intake. Get into the habit of keeping an eye on your weight by using an appropriate scale. Learn to log exercise and discussed fitness Apps like Treaterpal/loseit which can help keep log off calories taken versus calories burned. Local food should be preferred. Discussed Dirty Dozen Versus Clean Fifteen. Discussed healthy supplements like fish oil, Tumeric, Curcumin, Melatonin, Resveratrol, Probiotics, Vitamin-D, Alpha-Lipoic acid, Vitamin-D and coconut oil. 2. It is important to exercise regularly. Is a good habit to walk at least 30 minutes a day. Gentle weightlifting with standard precautions to protect the back. Finding activity like cycling or hiking and get into the habit of engaging in it. Stretching before and after the exercises important. It is also important to contact me if there are any problems like shortness of breath, chest pain, back pain and joint or muscle pain associated with the exercise. 3. Discussed age appropriate screening guidelines. Colonoscopy needs to start at age 50 with stool for occult blood as appropriate. There is a new test that can test for genetic abnormalities in the stool sample, Cologuard. This would not replace a colonoscopy but could be used as a screening tool for patients who do not want a colonoscopy. We discussed the importance of early detection of colon cancer. 4. Discussed current PSA screening. PSA screening can be done in most patients between age 50 and 65. However early detection of prostate cancer needs to carefully be balanced with complications with treatment. These include incontinence, impotence etc. Each patient should decide if they would like to have this test. 5. Discussed safe driving and no use of smart phone while driving 6. Age-appropriate immunizations were discussed. A tetanus booster is needed every 10 years. Flu vaccine is recommended every year just before the start of the flu season. Shingles vaccine is recommended after age 50 but not all insurances cover it. Pneumonia vaccine is given after age 65 unless there are certain comorbidities for which it is started earlier. 7. Diagnostic labs were discussed. These could include/not limited to CBC CMP and lipids with fasting blood glucose and insulin levels. Vitamin D and hemoglobin A1c testing might be appropriate. All questions have been answered to patient's satisfaction. Patient verbalized understanding of diagnosis and treatments explained. Advised to call sooner prior to next visit it any questions/concerns arise. Case discussed with collaborating physician Paras Reese who reviewed the assessment and plan. Chart, medications, labs, vital signs reviewed. Dictation was accomplished with the use of [employer] voice recognition software, which is prone to medical misidentifications and grammatical errors. This are unintentional and the practitioner does try to identify and correct these, but some could still be present. Please do not hesitate to contact practitioner for clarification. 02/27/2024 Sciatica of right side (ICD-10 - M54.31) Lee is a 48-year-old male who presents to the office today for new patient evaluation. Patient is welcomed to the practice. They are coming from [facility]. Last complete physical exam with labs before Covid-19 pandemic. Medications, medical history, allergies, surgeries, hospitalizations, family history, and social history were reviewed. Problem list updated. Cardiopulmonary and abdominal exam unremarkable. Patient will follow-up in office in approximately 4 weeks for CPE with labs. All patient questions answered at this time. # Abdominal pain: Patient presented to [facility] emergency department 12/26/2023 for acute abdominal pain localized in umbilical area, described as something burst in his abdomen. Acute concerns at that time included aortic aneurysm, dissection of aorta, gastric perforation, small bowel obstruction. Labs were performed including CBC showing mild leukocytosis of 11.7, chemistries unremarkable, urinalysis unremarkable, CT scan of abdomen/pelvis showing no acute process indicating abdominal pain and no evidence of aortic dissection. Patient then followed up with gastroenterology, imaging continuing to indicate no acute reason for abdominal pain, however clinical evaluation by Dr. Russell suggesting umbilical hernia. For further evaluation and assessment will refer to general surgery. Will continue to follow. # Sleep apnea: Reports history of snoring and several occasions of waking up feeling breathless. Has had sleep study done several years ago which was unremarkable at that time. Will refer to pulmonology for repeat sleep study and further intervention as deemed necessary. Will continue to follow. # Shortness of breath: Patient reports sensation of compression on his chest anytime that he bends over which then produces shortness of breath. Reports no history of asthma, COPD, or other respiratory disorder. Former smoker. On physical exam lungs are clear to auscultation without wheezing, stridor, rhonchi, or rales. Will refer to pulmonology for further testing including imaging as deemed necessary and pulmonary function testing. Will continue to follow. # GERD: Stable at this time. Continue omeprazole 40 mg half hour to 1 hour before morning meal. Discussed proper use of the medication and expected side effect profile including but not limited to abdominal pain, nausea, vomiting, diarrhea, and flatulence. Will continue to monitor. # Obesity: Weight 201.2 pounds, BMI 33.48. Discussed the importance of diet and lifestyle maintaining healthy weight for the patient and preventing other obesity related comorbidities. Will continue to monitor. # Sciatica: Patient reporting intermittent sensation of throbbing in his right leg which he believes consistent to be with sciatica. Pain waxes and wanes. Advised to use enly-whh-lhnzpff medications like NSAIDs to manage pain. Patient interested in seeing chiropractor for further evaluation and management. Discussed if pain worsens can consider MRI imaging of the spine and physical therapy. Will continue to follow. All questions have been answered to patient's satisfaction. Patient verbalized understanding of diagnosis and treatments explained. Advised to call sooner prior to next visit it any questions/concerns arise. Case discussed with collaborating physician Paras Reese who reviewed the assessment and plan. Chart, medications, labs, vital signs reviewed. Dictation was accomplished with the use of [employer] voice recognition software, which is prone to medical misidentifications and grammatical errors. This are unintentional and the practitioner does try to identify and correct these, but some could still be present. Please do not hesitate to contact practitioner for clarification. 02/27/2024 Adult-onset obesity (ICD-10 - E66.9) Lee is a 48-year-old male who presents to the office today for new patient evaluation. Patient is welcomed to the practice. They are coming from [facility]. Last complete physical exam with labs before Covid-19 pandemic. Medications, medical history, allergies, surgeries, hospitalizations, family history, and social history were reviewed. Problem list updated. Cardiopulmonary and abdominal exam unremarkable. Patient will follow-up in office in approximately 4 weeks for CPE with labs. All patient questions answered at this time. # Abdominal pain: Patient presented to [facility] emergency department 12/26/2023 for acute abdominal pain localized in umbilical area, described as something burst in his abdomen. Acute concerns at that time included aortic aneurysm, dissection of aorta, gastric perforation, small bowel obstruction. Labs were performed including CBC showing mild leukocytosis of 11.7, chemistries unremarkable, urinalysis unremarkable, CT scan of abdomen/pelvis showing no acute process indicating abdominal pain and no evidence of aortic dissection. Patient then followed up with gastroenterology, imaging continuing to indicate no acute reason for abdominal pain, however clinical evaluation by Dr. Russell suggesting umbilical hernia. For further evaluation and assessment will refer to general surgery. Will continue to follow. # Sleep apnea: Reports history of snoring and several occasions of waking up feeling breathless. Has had sleep study done several years ago which was unremarkable at that time. Will refer to pulmonology for repeat sleep study and further intervention as deemed necessary. Will continue to follow. # Shortness of breath: Patient reports sensation of compression on his chest anytime that he bends over which then produces shortness of breath. Reports no history of asthma, COPD, or other respiratory disorder. Former smoker. On physical exam lungs are clear to auscultation without wheezing, stridor, rhonchi, or rales. Will refer to pulmonology for further testing including imaging as deemed necessary and pulmonary function testing. Will continue to follow. # GERD: Stable at this time. Continue omeprazole 40 mg half hour to 1 hour before morning meal. Discussed proper use of the medication and expected side effect profile including but not limited to abdominal pain, nausea, vomiting, diarrhea, and flatulence. Will continue to monitor. # Obesity: Weight 201.2 pounds, BMI 33.48. Discussed the importance of diet and lifestyle maintaining healthy weight for the patient and preventing other obesity related comorbidities. Will continue to monitor. # Sciatica: Patient reporting intermittent sensation of throbbing in his right leg which he believes consistent to be with sciatica. Pain waxes and wanes. Advised to use [id number] medications like NSAIDs to manage pain. Patient interested in seeing chiropractor for further evaluation and management. Discussed if pain worsens can consider MRI imaging of the spine and physical therapy. Will continue to follow. All questions have been answered to patient's satisfaction. Patient verbalized understanding of diagnosis and treatments explained. Advised to call sooner prior to next visit it any questions/concerns arise. Case discussed with collaborating physician Paras Reese who reviewed the assessment and plan. Chart, medications, labs, vital signs reviewed. Dictation was accomplished with the use of [employer] voice recognition software, which is prone to medical misidentifications and grammatical errors. This are unintentional and the practitioner does try to identify and correct these, but some could still be present. Please do not hesitate to contact practitioner for clarification. 04/23/2024 Umbilical hernia without obstruction and without gangrene (ICD-10 - K42.9) Patient seen and examined. Comprehensive discussion was done on the following. # Hyperlipidemia: Lipid panel on 04/18/2024 demonstrating cholesterol 200, triglycerides 370, HDL 34, and LDL 103. ASCVD risk calculator with recommendation for moderate intensity statin. Therefore we will begin rosuvastatin 10 mg once daily in the evening. Discussed proper use of the medication and potential side effect profile including but not limited to musculoskeletal pain and fatigue. Patient states he will also begin supplementation again with omega-3 fatty acids. Further discussed importance of fiber intake, solvents like turmeric, garlic, and vitamin D supplementation to further decrease cholesterol and prevent other comorbidities. Encourage physical activity. He will follow-up in office in 6 months with repeat lipid panel for further management. # Hip pain: Patient reporting chronic hip pain since his 20s, no injuries or trauma. Does have history of sciatica. At this time reporting increased pain when lying in both of his hips in bed. Today he is without numbness, tingling, or other paresthesias. No difficulty with ambulation. On physical exam positive findings including tenderness to right hip with passive internal rotation. Will treat symptomatically with naproxen 250 mg every 12 hours as needed for acute pain. Discussed proper use of the medication and present side effect profile including but not limited to dyspepsia, nausea, abdominal pain, constipation. Will continue to monitor. # Right ankle pain: History of injury to right ankle in December, was walking downstairs and missed the last 2 steps. Reports mechanism of rolling his ankle. Went to [place] ED for further management, on imaging found to have avulsion. Has not had follow-up with orthopedics, was scheduled to have MRI however did not go for imaging as pain was improving. However now pain has resumed, has some difficulty initiating few steps however no other pain or difficulty with ambulation. Advised the patient to follow-up with orthopedics for evaluation and to schedule MRI. Patient understanding, will continue to monitor. # Vitamin D insufficiency: Vitamin D level on 04/19/2024 at 23.9. Will prescribe vitamin D 50 mcg to be taken once daily. Will continue to monitor with updated labs. # Umbilical hernia: Patient presented to [facility] emergency department 12/26/2023 for acute abdominal pain localized in umbilical area, described as something burst in his abdomen. Acute concerns at that time included aortic aneurysm, dissection of aorta, gastric perforation, small bowel obstruction. Labs were performed including CBC showing mild leukocytosis of 11.7, chemistries unremarkable, urinalysis unremarkable, CT scan of abdomen/pelvis showing no acute process indicating abdominal pain and no evidence of aortic dissection. Patient then followed up with gastroenterology, imaging continuing to indicate no acute reason for abdominal pain, however clinical evaluation by Dr. Russell suggesting umbilical hernia. Patient has consultation scheduled with general surgery in April, will continue to follow. # Sleep apnea: Reports history of snoring and several occasions of waking up feeling breathless. Has had sleep study done several years ago which was unremarkable at that time. Will refer to pulmonology for repeat sleep study and further intervention as deemed necessary. Will continue to follow. # GERD: Continue omeprazole 40 mg 30 minutes to 1 hour before meal. Discussed proper use of the medication and potential side effect profile including but not limited to abdominal pain, nausea, vomiting, diarrhea, and flatulence. Will continue to monitor. # Obesity: Weight 199 pounds, BMI 33.11. Encourage lifestyle modifications including improving diet and increasing physical activity including cardiovascular exercise and resistance training 3 times weekly. Will continue to monitor at subsequent visits. # Alcohol misuse: AUDIT-C administered in office with score of 7. Reporting 4 more times per week where he may have Bever containing alcohol, 3-4 drinks in typical setting, and monthly occurrence where he may have 6 or more drinks in 1 occasion. Reports consumption of beer and/or hard liquor. LFTs within normal limits with AST 23, ALT 31. Discussed risks of chronic alcohol consumption. Will continue to monitor. 1. Nutrition: It is important to follow a healthy diet based on lots of vegetables and legumes and good fat. Avoid processed food and processed carbohydrates. Prepare your own meals. Read labels and avoid high fructose corn syrup, processed chemicals added to increase shelf life and preprepared meals. Avoid fast foods. Eat slowly and plan meals for a week. Try to count calories and be mindful of daily calorie intake. Get into the habit of keeping an eye on your weight by using an appropriate scale. Learn to log exercise and discussed fitness Apps like myfitnesspal/loseit which can help keep log off calories taken versus calories burned. Local food should be preferred. Discussed Dirty Dozen Versus Clean Fifteen. Discussed healthy supplements like fish oil, Tumeric, Curcumin, Melatonin, Resveratrol, Probiotics, Vitamin-D, Alpha-Lipoic acid, Vitamin-D and coconut oil. 2. It is important to exercise regularly. Is a good habit to walk at least 30 minutes a day. Gentle weightlifting with standard precautions to protect the back. Finding activity like cycling or hiking and get into the habit of engaging in it. Stretching before and after the exercises important. It is also important to contact me if there are any problems like shortness of breath, chest pain, back pain and joint or muscle pain associated with the exercise. 3. Discussed age appropriate screening guidelines. Colonoscopy needs to start at age 50 with stool for occult blood as appropriate. There is a new test that can test for genetic abnormalities in the stool sample, Cologuard. This would not replace a colonoscopy but could be used as a screening tool for patients who do not want a colonoscopy. We discussed the importance of early detection of colon cancer. 4. Discussed current PSA screening. PSA screening can be done in most patients between age 50 and 65. However early detection of prostate cancer needs to carefully be balanced with complications with treatment. These include incontinence, impotence etc. Each patient should decide if they would like to have this test. 5. Discussed safe driving and no use of smart phone while driving 6. Age-appropriate immunizations were discussed. A tetanus booster is needed every 10 years. Flu vaccine is recommended every year just before the start of the flu season. Shingles vaccine is recommended after age 50 but not all insurances cover it. Pneumonia vaccine is given after age 65 unless there are certain comorbidities for which it is started earlier. 7. Diagnostic labs were discussed. These could include/not limited to CBC CMP and lipids with fasting blood glucose and insulin levels. Vitamin D and hemoglobin A1c testing might be appropriate. All questions have been answered to patient's satisfaction. Patient verbalized understanding of diagnosis and treatments explained. Advised to call sooner prior to next visit it any questions/concerns arise. Case discussed with collaborating physician Paras Reese who reviewed the assessment and plan. Chart, medications, labs, vital signs reviewed. Dictation was accomplished with the use of [employer] voice recognition software, which is prone to medical misidentifications and grammatical errors. This are unintentional and the practitioner does try to identify and correct these, but some could still be present. Please do not hesitate to contact practitioner for clarification. 12/26/2024 GERD (gastroesophageal reflux disease) (ICD-10 - K21.9) Lee is a 49-year-old male with history of hyperlipidemia, umbilical hernia now status post robotic repair with mesh, acid reflux, and vitamin D deficiency who presents today for routine follow-up. Medications reconciled. Problem list updated. Cardiopulmonary exam unremarkable. All patient questions answered this time. # Right shoulder/elbow pain: Patient reports chronic pain and limited range of motion in the right shoulder along with pain in the elbow and intermittent numbness traveling down extremity. Athlete growing up, playing golf and baseball. Also reports repetitive upper extremity movements with his job. No prior imaging. On exam there is no tenderness to palpation of the acromioclavicular joint, clavicle, sternoclavicular joint, or head of humerus. Tenderness with palpation of the right medial epicondyle of the elbow. Specialized testing including Romano sign and [place] liftoff is positive on right side. At this time plan will be to obtain an x-ray of the right shoulder and right elbow joint along with referral to orthopedics for further evaluation and management. Advised to continue NSAIDs for pain as needed. # Snoring: Patient with nightly snoring and unrestful sleep. Will obtain a home sleep study through [facility]. # Umbilical hernia: Patient is now status post robotic umbilical hernia repair with mesh performed by Dr. Tram Weiss on 11/30/2024. Had postop evaluation in 12/17/2024. No acute operative complications. Patient advised to avoid heavy lifting and strenuous activity for the following 4 weeks. Patient reports intermittent abdominal discomfort however continues to take Tylenol as needed. Regular bowel movements. Expected to have a follow-up visit with specialist in 1 month. # Hyperlipidemia: Lipid panel last updated 04/18/2024 with total cholesterol 200, triglycerides 370, HDL 34, LDL 103. Updated lipid panel pending. Continue rosuvastatin 10 mg daily. # Acid reflux: Continue omeprazole 40 mg once daily. # Vitamin D deficiency: Vitamin D level updated in March 2024 reduced at 23.9. Continue daily vitamin D supplementation. All questions have been answered to patient's satisfaction. Patient verbalized understanding of diagnosis and treatments explained. Advised to call sooner prior to next visit it any questions/concerns arise. Case discussed with collaborating physician Paras Reese who reviewed the assessment and plan. Chart, medications, labs, vital signs reviewed. Dictation was accomplished with the use of [employer] voice recognition software, which is prone to medical misidentifications and grammatical errors. This are unintentional and the practitioner does try to identify and correct these, but some could still be present. Please do not hesitate to contact practitioner for clarification. 12/26/2024 Encounter for examination of blood pressure without abnormal findings (ICD-10 - Z01.30) Lee is a 49-year-old male with history of hyperlipidemia, umbilical hernia now status post robotic repair with mesh, acid reflux, and vitamin D deficiency who presents today for routine follow-up. Medications reconciled. Problem list updated. Cardiopulmonary exam unremarkable. All patient questions answered this time. # Right shoulder/elbow pain: Patient reports chronic pain and limited range of motion in the right shoulder along with pain in the elbow and intermittent numbness traveling down extremity. Athlete growing up, playing golf and baseball. Also reports repetitive upper extremity movements with his job. No prior imaging. On exam there is no tenderness to palpation of the acromioclavicular joint, clavicle, sternoclavicular joint, or head of humerus. Tenderness with palpation of the right medial epicondyle of the elbow. Specialized testing including Romano sign and [place] liftoff is positive on right side. At this time plan will be to obtain an x-ray of the right shoulder and right elbow joint along with referral to orthopedics for further evaluation and management. Advised to continue NSAIDs for pain as needed. # Snoring: Patient with nightly snoring and unrestful sleep. Will obtain a home sleep study through [facility]. # Umbilical hernia: Patient is now status post robotic umbilical hernia repair with mesh performed by Dr. Tram Weiss on 11/30/2024. Had postop evaluation in 12/17/2024. No acute operative complications. Patient advised to avoid heavy lifting and strenuous activity for the following 4 weeks. Patient reports intermittent abdominal discomfort however continues to take Tylenol as needed. Regular bowel movements. Expected to have a follow-up visit with specialist in 1 month. # Hyperlipidemia: Lipid panel last updated 04/18/2024 with total cholesterol 200, triglycerides 370, HDL 34, LDL 103. Updated lipid panel pending. Continue rosuvastatin 10 mg daily. # Acid reflux: Continue omeprazole 40 mg once daily. # Vitamin D deficiency: Vitamin D level updated in March 2024 reduced at 23.9. Continue daily vitamin D supplementation. All questions have been answered to patient's satisfaction. Patient verbalized understanding of diagnosis and treatments explained. Advised to call sooner prior to next visit it any questions/concerns arise. Case discussed with collaborating physician Paras Reese who reviewed the assessment and plan. Chart, medications, labs, vital signs reviewed. Dictation was accomplished with the use of [employer] voice recognition software, which is prone to medical misidentifications and grammatical errors. This are unintentional and the practitioner does try to identify and correct these, but some could still be present. Please do not hesitate to contact practitioner for clarification. 02/27/2024 BMI 33.0-33.9,adult (ICD-10 - Z68.33) Lee is a 48-year-old male who presents to the office today for new patient evaluation. Patient is welcomed to the practice. They are coming from [facility]. Last complete physical exam with labs before Covid-19 pandemic. Medications, medical history, allergies, surgeries, hospitalizations, family history, and social history were reviewed. Problem list updated. Cardiopulmonary and abdominal exam unremarkable. Patient will follow-up in office in approximately 4 weeks for CPE with labs. All patient questions answered at this time. # Abdominal pain: Patient presented to [facility] emergency department 12/26/2023 for acute abdominal pain localized in umbilical area, described as something burst in his abdomen. Acute concerns at that time included aortic aneurysm, dissection of aorta, gastric perforation, small bowel obstruction. Labs were performed including CBC showing mild leukocytosis of 11.7, chemistries unremarkable, urinalysis unremarkable, CT scan of abdomen/pelvis showing no acute process indicating abdominal pain and no evidence of aortic dissection. Patient then followed up with gastroenterology, imaging continuing to indicate no acute reason for abdominal pain, however clinical evaluation by Dr. Russell suggesting umbilical hernia. For further evaluation and assessment will refer to general surgery. Will continue to follow. # Sleep apnea: Reports history of snoring and several occasions of waking up feeling breathless. Has had sleep study done several years ago which was unremarkable at that time. Will refer to pulmonology for repeat sleep study and further intervention as deemed necessary. Will continue to follow. # Shortness of breath: Patient reports sensation of compression on his chest anytime that he bends over which then produces shortness of breath. Reports no history of asthma, COPD, or other respiratory disorder. Former smoker. On physical exam lungs are clear to auscultation without wheezing, stridor, rhonchi, or rales. Will refer to pulmonology for further testing including imaging as deemed necessary and pulmonary function testing. Will continue to follow. # GERD: Stable at this time. Continue omeprazole 40 mg half hour to 1 hour before morning meal. Discussed proper use of the medication and expected side effect profile including but not limited to abdominal pain, nausea, vomiting, diarrhea, and flatulence. Will continue to monitor. # Obesity: Weight 201.2 pounds, BMI 33.48. Discussed the importance of diet and lifestyle maintaining healthy weight for the patient and preventing other obesity related comorbidities. Will continue to monitor. # Sciatica: Patient reporting intermittent sensation of throbbing in his right leg which he believes consistent to be with sciatica. Pain waxes and wanes. Advised to use [id number] medications like NSAIDs to manage pain. Patient interested in seeing chiropractor for further evaluation and management. Discussed if pain worsens can consider MRI imaging of the spine and physical therapy. Will continue to follow. All questions have been answered to patient's satisfaction. Patient verbalized understanding of diagnosis and treatments explained. Advised to call sooner prior to next visit it any questions/concerns arise. Case discussed with collaborating physician Paras Reese who reviewed the assessment and plan. Chart, medications, labs, vital signs reviewed. Dictation was accomplished with the use of [employer] voice recognition software, which is prone to medical misidentifications and grammatical errors. This are unintentional and the practitioner does try to identify and correct these, but some could still be present. Please do not hesitate to contact practitioner for clarification. 04/23/2024 Suspected sleep apnea (ICD-10 - R29.818) Patient seen and examined. Comprehensive discussion was done on the following. # Hyperlipidemia: Lipid panel on 04/18/2024 demonstrating cholesterol 200, triglycerides 370, HDL 34, and LDL 103. ASCVD risk calculator with recommendation for moderate intensity statin. Therefore we will begin rosuvastatin 10 mg once daily in the evening. Discussed proper use of the medication and potential side effect profile including but not limited to musculoskeletal pain and fatigue. Patient states he will also begin supplementation again with omega-3 fatty acids. Further discussed importance of fiber intake, solvents like turmeric, garlic, and vitamin D supplementation to further decrease cholesterol and prevent other comorbidities. Encourage physical activity. He will follow-up in office in 6 months with repeat lipid panel for further management. # Hip pain: Patient reporting chronic hip pain since his 20s, no injuries or trauma. Does have history of sciatica. At this time reporting increased pain when lying in both of his hips in bed. Today he is without numbness, tingling, or other paresthesias. No difficulty with ambulation. On physical exam positive findings including tenderness to right hip with passive internal rotation. Will treat symptomatically with naproxen 250 mg every 12 hours as needed for acute pain. Discussed proper use of the medication and present side effect profile including but not limited to dyspepsia, nausea, abdominal pain, constipation. Will continue to monitor. # Right ankle pain: History of injury to right ankle in December, was walking downstairs and missed the last 2 steps. Reports mechanism of rolling his ankle. Went to [place] ED for further management, on imaging found to have avulsion. Has not had follow-up with orthopedics, was scheduled to have MRI however did not go for imaging as pain was improving. However now pain has resumed, has some difficulty initiating few steps however no other pain or difficulty with ambulation. Advised the patient to follow-up with orthopedics for evaluation and to schedule MRI. Patient understanding, will continue to monitor. # Vitamin D insufficiency: Vitamin D level on 04/19/2024 at 23.9. Will prescribe vitamin D 50 mcg to be taken once daily. Will continue to monitor with updated labs. # Umbilical hernia: Patient presented to [facility] emergency department 12/26/2023 for acute abdominal pain localized in umbilical area, described as something burst in his abdomen. Acute concerns at that time included aortic aneurysm, dissection of aorta, gastric perforation, small bowel obstruction. Labs were performed including CBC showing mild leukocytosis of 11.7, chemistries unremarkable, urinalysis unremarkable, CT scan of abdomen/pelvis showing no acute process indicating abdominal pain and no evidence of aortic dissection. Patient then followed up with gastroenterology, imaging continuing to indicate no acute reason for abdominal pain, however clinical evaluation by Dr. Russell suggesting umbilical hernia. Patient has consultation scheduled with general surgery in April, will continue to follow. # Sleep apnea: Reports history of snoring and several occasions of waking up feeling breathless. Has had sleep study done several years ago which was unremarkable at that time. Will refer to pulmonology for repeat sleep study and further intervention as deemed necessary. Will continue to follow. # GERD: Continue omeprazole 40 mg 30 minutes to 1 hour before meal. Discussed proper use of the medication and potential side effect profile including but not limited to abdominal pain, nausea, vomiting, diarrhea, and flatulence. Will continue to monitor. # Obesity: Weight 199 pounds, BMI 33.11. Encourage lifestyle modifications including improving diet and increasing physical activity including cardiovascular exercise and resistance training 3 times weekly. Will continue to monitor at subsequent visits. # Alcohol misuse: AUDIT-C administered in office with score of 7. Reporting 4 more times per week where he may have Bever containing alcohol, 3-4 drinks in typical setting, and monthly occurrence where he may have 6 or more drinks in 1 occasion. Reports consumption of beer and/or hard liquor. LFTs within normal limits with AST 23, ALT 31. Discussed risks of chronic alcohol consumption. Will continue to monitor. 1. Nutrition: It is important to follow a healthy diet based on lots of vegetables and legumes and good fat. Avoid processed food and processed carbohydrates. Prepare your own meals. Read labels and avoid high fructose corn syrup, processed chemicals added to increase shelf life and preprepared meals. Avoid fast foods. Eat slowly and plan meals for a week. Try to count calories and be mindful of daily calorie intake. Get into the habit of keeping an eye on your weight by using an appropriate scale. Learn to log exercise and discussed fitness Apps like [employer] which can help keep log off calories taken versus calories burned. Local food should be preferred. Discussed [employer]zen Versus [employer] Fifteen. Discussed healthy supplements like fish oil, Tumeric, Curcumin, Melatonin, Resveratrol, Probiotics, Vitamin-D, Alpha-Lipoic acid, Vitamin-D and coconut oil. 2. It is important to exercise regularly. Is a good habit to walk at least 30 minutes a day. Gentle weightlifting with standard precautions to protect the back. Finding activity like cycling or hiking and get into the habit of engaging in it. Stretching before and after the exercises important. It is also important to contact me if there are any problems like shortness of breath, chest pain, back pain and joint or muscle pain associated with the exercise. 3. Discussed age appropriate screening guidelines. Colonoscopy needs to start at age 50 with stool for occult blood as appropriate. There is a new test that can test for genetic abnormalities in the stool sample, Cologuard. This would not replace a colonoscopy but could be used as a screening tool for patients who do not want a colonoscopy. We discussed the importance of early detection of colon cancer. 4. Discussed current PSA screening. PSA screening can be done in most patients between age 50 and 65. However early detection of prostate cancer needs to carefully be balanced with complications with treatment. These include incontinence, impotence etc. Each patient should decide if they would like to have this test. 5. Discussed safe driving and no use of smart phone while driving 6. Age-appropriate immunizations were discussed. A tetanus booster is needed every 10 years. Flu vaccine is recommended every year just before the start of the flu season. Shingles vaccine is recommended after age 50 but not all insurances cover it. Pneumonia vaccine is given after age 65 unless there are certain comorbidities for which it is started earlier. 7. Diagnostic labs were discussed. These could include/not limited to CBC CMP and lipids with fasting blood glucose and insulin levels. Vitamin D and hemoglobin A1c testing might be appropriate. All questions have been answered to patient's satisfaction. Patient verbalized understanding of diagnosis and treatments explained. Advised to call sooner prior to next visit it any questions/concerns arise. Case discussed with collaborating physician Paras Reese who reviewed the assessment and plan. Chart, medications, labs, vital signs reviewed. Dictation was accomplished with the use of [employer] voice recognition software, which is prone to medical misidentifications and grammatical errors. This are unintentional and the practitioner does try to identify and correct these, but some could still be present. Please do not hesitate to contact practitioner for clarification. 04/23/2024 GERD without esophagitis (ICD-10 - K21.9) Patient seen and examined. Comprehensive discussion was done on the following. # Hyperlipidemia: Lipid panel on 04/18/2024 demonstrating cholesterol 200, triglycerides 370, HDL 34, and LDL 103. ASCVD risk calculator with recommendation for moderate intensity statin. Therefore we will begin rosuvastatin 10 mg once daily in the evening. Discussed proper use of the medication and potential side effect profile including but not limited to musculoskeletal pain and fatigue. Patient states he will also begin supplementation again with omega-3 fatty acids. Further discussed importance of fiber intake, solvents like turmeric, garlic, and vitamin D supplementation to further decrease cholesterol and prevent other comorbidities. Encourage physical activity. He will follow-up in office in 6 months with repeat lipid panel for further management. # Hip pain: Patient reporting chronic hip pain since his 20s, no injuries or trauma. Does have history of sciatica. At this time reporting increased pain when lying in both of his hips in bed. Today he is without numbness, tingling, or other paresthesias. No difficulty with ambulation. On physical exam positive findings including tenderness to right hip with passive internal rotation. Will treat symptomatically with naproxen 250 mg every 12 hours as needed for acute pain. Discussed proper use of the medication and present side effect profile including but not limited to dyspepsia, nausea, abdominal pain, constipation. Will continue to monitor. # Right ankle pain: History of injury to right ankle in December, was walking downstairs and missed the last 2 steps. Reports mechanism of rolling his ankle. Went to [place] ED for further management, on imaging found to have avulsion. Has not had follow-up with orthopedics, was scheduled to have MRI however did not go for imaging as pain was improving. However now pain has resumed, has some difficulty initiating few steps however no other pain or difficulty with ambulation. Advised the patient to follow-up with orthopedics for evaluation and to schedule MRI. Patient understanding, will continue to monitor. # Vitamin D insufficiency: Vitamin D level on 04/19/2024 at 23.9. Will prescribe vitamin D 50 mcg to be taken once daily. Will continue to monitor with updated labs. # Umbilical hernia: Patient presented to [facility] emergency department 12/26/2023 for acute abdominal pain localized in umbilical area, described as something burst in his abdomen. Acute concerns at that time included aortic aneurysm, dissection of aorta, gastric perforation, small bowel obstruction. Labs were performed including CBC showing mild leukocytosis of 11.7, chemistries unremarkable, urinalysis unremarkable, CT scan of abdomen/pelvis showing no acute process indicating abdominal pain and no evidence of aortic dissection. Patient then followed up with gastroenterology, imaging continuing to indicate no acute reason for abdominal pain, however clinical evaluation by Dr. Russell suggesting umbilical hernia. Patient has consultation scheduled with general surgery in April, will continue to follow. # Sleep apnea: Reports history of snoring and several occasions of waking up feeling breathless. Has had sleep study done several years ago which was unremarkable at that time. Will refer to pulmonology for repeat sleep study and further intervention as deemed necessary. Will continue to follow. # GERD: Continue omeprazole 40 mg 30 minutes to 1 hour before meal. Discussed proper use of the medication and potential side effect profile including but not limited to abdominal pain, nausea, vomiting, diarrhea, and flatulence. Will continue to monitor. # Obesity: Weight 199 pounds, BMI 33.11. Encourage lifestyle modifications including improving diet and increasing physical activity including cardiovascular exercise and resistance training 3 times weekly. Will continue to monitor at subsequent visits. # Alcohol misuse: AUDIT-C administered in office with score of 7. Reporting 4 more times per week where he may have Bever containing alcohol, 3-4 drinks in typical setting, and monthly occurrence where he may have 6 or more drinks in 1 occasion. Reports consumption of beer and/or hard liquor. LFTs within normal limits with AST 23, ALT 31. Discussed risks of chronic alcohol consumption. Will continue to monitor. 1. Nutrition: It is important to follow a healthy diet based on lots of vegetables and legumes and good fat. Avoid processed food and processed carbohydrates. Prepare your own meals. Read labels and avoid high fructose corn syrup, processed chemicals added to increase shelf life and preprepared meals. Avoid fast foods. Eat slowly and plan meals for a week. Try to count calories and be mindful of daily calorie intake. Get into the habit of keeping an eye on your weight by using an appropriate scale. Learn to log exercise and discussed fitness Apps like [employer] which can help keep log off calories taken versus calories burned. Local food should be preferred. Discussed Dirty Dozen Versus Clean Fifteen. Discussed healthy supplements like fish oil, Tumeric, Curcumin, Melatonin, Resveratrol, Probiotics, Vitamin-D, Alpha-Lipoic acid, Vitamin-D and coconut oil. 2. It is important to exercise regularly. Is a good habit to walk at least 30 minutes a day. Gentle weightlifting with standard precautions to protect the back. Finding activity like cycling or hiking and get into the habit of engaging in it. Stretching before and after the exercises important. It is also important to contact me if there are any problems like shortness of breath, chest pain, back pain and joint or muscle pain associated with the exercise. 3. Discussed age appropriate screening guidelines. Colonoscopy needs to start at age 50 with stool for occult blood as appropriate. There is a new test that can test for genetic abnormalities in the stool sample, Cologuard. This would not replace a colonoscopy but could be used as a screening tool for patients who do not want a colonoscopy. We discussed the importance of early detection of colon cancer. 4. Discussed current PSA screening. PSA screening can be done in most patients between age 50 and 65. However early detection of prostate cancer needs to carefully be balanced with complications with treatment. These include incontinence, impotence etc. Each patient should decide if they would like to have this test. 5. Discussed safe driving and no use of smart phone while driving 6. Age-appropriate immunizations were discussed. A tetanus booster is needed every 10 years. Flu vaccine is recommended every year just before the start of the flu season. Shingles vaccine is recommended after age 50 but not all insurances cover it. Pneumonia vaccine is given after age 65 unless there are certain comorbidities for which it is started earlier. 7. Diagnostic labs were discussed. These could include/not limited to CBC CMP and lipids with fasting blood glucose and insulin levels. Vitamin D and hemoglobin A1c testing might be appropriate. All questions have been answered to patient's satisfaction. Patient verbalized understanding of diagnosis and treatments explained. Advised to call sooner prior to next visit it any questions/concerns arise. Case discussed with collaborating physician Paras Reese who reviewed the assessment and plan. Chart, medications, labs, vital signs reviewed. Dictation was accomplished with the use of [employer] voice recognition software, which is prone to medical misidentifications and grammatical errors. This are unintentional and the practitioner does try to identify and correct these, but some could still be present. Please do not hesitate to contact practitioner for clarification. 04/23/2024 Adult-onset obesity (ICD-10 - E66.9) Patient seen and examined. Comprehensive discussion was done on the following. # Hyperlipidemia: Lipid panel on 04/18/2024 demonstrating cholesterol 200, triglycerides 370, HDL 34, and LDL 103. ASCVD risk calculator with recommendation for moderate intensity statin. Therefore we will begin rosuvastatin 10 mg once daily in the evening. Discussed proper use of the medication and potential side effect profile including but not limited to musculoskeletal pain and fatigue. Patient states he will also begin supplementation again with omega-3 fatty acids. Further discussed importance of fiber intake, solvents like turmeric, garlic, and vitamin D supplementation to further decrease cholesterol and prevent other comorbidities. Encourage physical activity. He will follow-up in office in 6 months with repeat lipid panel for further management. # Hip pain: Patient reporting chronic hip pain since his 20s, no injuries or trauma. Does have history of sciatica. At this time reporting increased pain when lying in both of his hips in bed. Today he is without numbness, tingling, or other paresthesias. No difficulty with ambulation. On physical exam positive findings including tenderness to right hip with passive internal rotation. Will treat symptomatically with naproxen 250 mg every 12 hours as needed for acute pain. Discussed proper use of the medication and present side effect profile including but not limited to dyspepsia, nausea, abdominal pain, constipation. Will continue to monitor. # Right ankle pain: History of injury to right ankle in December, was walking downstairs and missed the last 2 steps. Reports mechanism of rolling his ankle. Went to [place] ED for further management, on imaging found to have avulsion. Has not had follow-up with orthopedics, was scheduled to have MRI however did not go for imaging as pain was improving. However now pain has resumed, has some difficulty initiating few steps however no other pain or difficulty with ambulation. Advised the patient to follow-up with orthopedics for evaluation and to schedule MRI. Patient understanding, will continue to monitor. # Vitamin D insufficiency: Vitamin D level on 04/19/2024 at 23.9. Will prescribe vitamin D 50 mcg to be taken once daily. Will continue to monitor with updated labs. # Umbilical hernia: Patient presented to [facility] emergency department 12/26/2023 for acute abdominal pain localized in umbilical area, described as something burst in his abdomen. Acute concerns at that time included aortic aneurysm, dissection of aorta, gastric perforation, small bowel obstruction. Labs were performed including CBC showing mild leukocytosis of 11.7, chemistries unremarkable, urinalysis unremarkable, CT scan of abdomen/pelvis showing no acute process indicating abdominal pain and no evidence of aortic dissection. Patient then followed up with gastroenterology, imaging continuing to indicate no acute reason for abdominal pain, however clinical evaluation by Dr. Russell suggesting umbilical hernia. Patient has consultation scheduled with general surgery in April, will continue to follow. # Sleep apnea: Reports history of snoring and several occasions of waking up feeling breathless. Has had sleep study done several years ago which was unremarkable at that time. Will refer to pulmonology for repeat sleep study and further intervention as deemed necessary. Will continue to follow. # GERD: Continue omeprazole 40 mg 30 minutes to 1 hour before meal. Discussed proper use of the medication and potential side effect profile including but not limited to abdominal pain, nausea, vomiting, diarrhea, and flatulence. Will continue to monitor. # Obesity: Weight 199 pounds, BMI 33.11. Encourage lifestyle modifications including improving diet and increasing physical activity including cardiovascular exercise and resistance training 3 times weekly. Will continue to monitor at subsequent visits. # Alcohol misuse: AUDIT-C administered in office with score of 7. Reporting 4 more times per week where he may have Bever containing alcohol, 3-4 drinks in typical setting, and monthly occurrence where he may have 6 or more drinks in 1 occasion. Reports consumption of beer and/or hard liquor. LFTs within normal limits with AST 23, ALT 31. Discussed risks of chronic alcohol consumption. Will continue to monitor. 1. Nutrition: It is important to follow a healthy diet based on lots of vegetables and legumes and good fat. Avoid processed food and processed carbohydrates. Prepare your own meals. Read labels and avoid high fructose corn syrup, processed chemicals added to increase shelf life and preprepared meals. Avoid fast foods. Eat slowly and plan meals for a week. Try to count calories and be mindful of daily calorie intake. Get into the habit of keeping an eye on your weight by using an appropriate scale. Learn to log exercise and discussed fitness Apps like [employer] which can help keep log off calories taken versus calories burned. Local food should be preferred. Discussed Dirty Dozen Versus Clean Fifteen. Discussed healthy supplements like fish oil, Tumeric, Curcumin, Melatonin, Resveratrol, Probiotics, Vitamin-D, Alpha-Lipoic acid, Vitamin-D and coconut oil. 2. It is important to exercise regularly. Is a good habit to walk at least 30 minutes a day. Gentle weightlifting with standard precautions to protect the back. Finding activity like cycling or hiking and get into the habit of engaging in it. Stretching before and after the exercises important. It is also important to contact me if there are any problems like shortness of breath, chest pain, back pain and joint or muscle pain associated with the exercise. 3. Discussed age appropriate screening guidelines. Colonoscopy needs to start at age 50 with stool for occult blood as appropriate. There is a new test that can test for genetic abnormalities in the stool sample, Cologuard. This would not replace a colonoscopy but could be used as a screening tool for patients who do not want a colonoscopy. We discussed the importance of early detection of colon cancer. 4. Discussed current PSA screening. PSA screening can be done in most patients between age 50 and 65. However early detection of prostate cancer needs to carefully be balanced with complications with treatment. These include incontinence, impotence etc. Each patient should decide if they would like to have this test. 5. Discussed safe driving and no use of smart phone while driving 6. Age-appropriate immunizations were discussed. A tetanus booster is needed every 10 years. Flu vaccine is recommended every year just before the start of the flu season. Shingles vaccine is recommended after age 50 but not all insurances cover it. Pneumonia vaccine is given after age 65 unless there are certain comorbidities for which it is started earlier. 7. Diagnostic labs were discussed. These could include/not limited to CBC CMP and lipids with fasting blood glucose and insulin levels. Vitamin D and hemoglobin A1c testing might be appropriate. All questions have been answered to patient's satisfaction. Patient verbalized understanding of diagnosis and treatments explained. Advised to call sooner prior to next visit it any questions/concerns arise. Case discussed with collaborating physician Paras Reese who reviewed the assessment and plan. Chart, medications, labs, vital signs reviewed. Dictation was accomplished with the use of [employer] voice recognition software, which is prone to medical misidentifications and grammatical errors. This are unintentional and the practitioner does try to identify and correct these, but some could still be present. Please do not hesitate to contact practitioner for clarification. 04/23/2024 Chronic alcohol use (ICD-10 - F10.90) Patient seen and examined. Comprehensive discussion was done on the following. # Hyperlipidemia: Lipid panel on 04/18/2024 demonstrating cholesterol 200, triglycerides 370, HDL 34, and LDL 103. ASCVD risk calculator with recommendation for moderate intensity statin. Therefore we will begin rosuvastatin 10 mg once daily in the evening. Discussed proper use of the medication and potential side effect profile including but not limited to musculoskeletal pain and fatigue. Patient states he will also begin supplementation again with omega-3 fatty acids. Further discussed importance of fiber intake, solvents like turmeric, garlic, and vitamin D supplementation to further decrease cholesterol and prevent other comorbidities. Encourage physical activity. He will follow-up in office in 6 months with repeat lipid panel for further management. # Hip pain: Patient reporting chronic hip pain since his 20s, no injuries or trauma. Does have history of sciatica. At this time reporting increased pain when lying in both of his hips in bed. Today he is without numbness, tingling, or other paresthesias. No difficulty with ambulation. On physical exam positive findings including tenderness to right hip with passive internal rotation. Will treat symptomatically with naproxen 250 mg every 12 hours as needed for acute pain. Discussed proper use of the medication and present side effect profile including but not limited to dyspepsia, nausea, abdominal pain, constipation. Will continue to monitor. # Right ankle pain: History of injury to right ankle in December, was walking downstairs and missed the last 2 steps. Reports mechanism of rolling his ankle. Went to [place] ED for further management, on imaging found to have avulsion. Has not had follow-up with orthopedics, was scheduled to have MRI however did not go for imaging as pain was improving. However now pain has resumed, has some difficulty initiating few steps however no other pain or difficulty with ambulation. Advised the patient to follow-up with orthopedics for evaluation and to schedule MRI. Patient understanding, will continue to monitor. # Vitamin D insufficiency: Vitamin D level on 04/19/2024 at 23.9. Will prescribe vitamin D 50 mcg to be taken once daily. Will continue to monitor with updated labs. # Umbilical hernia: Patient presented to [facility] emergency department 12/26/2023 for acute abdominal pain localized in umbilical area, described as something burst in his abdomen. Acute concerns at that time included aortic aneurysm, dissection of aorta, gastric perforation, small bowel obstruction. Labs were performed including CBC showing mild leukocytosis of 11.7, chemistries unremarkable, urinalysis unremarkable, CT scan of abdomen/pelvis showing no acute process indicating abdominal pain and no evidence of aortic dissection. Patient then followed up with gastroenterology, imaging continuing to indicate no acute reason for abdominal pain, however clinical evaluation by Dr. Russell suggesting umbilical hernia. Patient has consultation scheduled with general surgery in April, will continue to follow. # Sleep apnea: Reports history of snoring and several occasions of waking up feeling breathless. Has had sleep study done several years ago which was unremarkable at that time. Will refer to pulmonology for repeat sleep study and further intervention as deemed necessary. Will continue to follow. # GERD: Continue omeprazole 40 mg 30 minutes to 1 hour before meal. Discussed proper use of the medication and potential side effect profile including but not limited to abdominal pain, nausea, vomiting, diarrhea, and flatulence. Will continue to monitor. # Obesity: Weight 199 pounds, BMI 33.11. Encourage lifestyle modifications including improving diet and increasing physical activity including cardiovascular exercise and resistance training 3 times weekly. Will continue to monitor at subsequent visits. # Alcohol misuse: AUDIT-C administered in office with score of 7. Reporting 4 more times per week where he may have Bever containing alcohol, 3-4 drinks in typical setting, and monthly occurrence where he may have 6 or more drinks in 1 occasion. Reports consumption of beer and/or hard liquor. LFTs within normal limits with AST 23, ALT 31. Discussed risks of chronic alcohol consumption. Will continue to monitor. 1. Nutrition: It is important to follow a healthy diet based on lots of vegetables and legumes and good fat. Avoid processed food and processed carbohydrates. Prepare your own meals. Read labels and avoid high fructose corn syrup, processed chemicals added to increase shelf life and preprepared meals. Avoid fast foods. Eat slowly and plan meals for a week. Try to count calories and be mindful of daily calorie intake. Get into the habit of keeping an eye on your weight by using an appropriate scale. Learn to log exercise and discussed fitness Apps like [employer] which can help keep log off calories taken versus calories burned. Local food should be preferred. Discussed Dirty Dozen Versus Clean Fifteen. Discussed healthy supplements like fish oil, Tumeric, Curcumin, Melatonin, Resveratrol, Probiotics, Vitamin-D, Alpha-Lipoic acid, Vitamin-D and coconut oil. 2. It is important to exercise regularly. Is a good habit to walk at least 30 minutes a day. Gentle weightlifting with standard precautions to protect the back. Finding activity like cycling or hiking and get into the habit of engaging in it. Stretching before and after the exercises important. It is also important to contact me if there are any problems like shortness of breath, chest pain, back pain and joint or muscle pain associated with the exercise. 3. Discussed age appropriate screening guidelines. Colonoscopy needs to start at age 50 with stool for occult blood as appropriate. There is a new test that can test for genetic abnormalities in the stool sample, Cologuard. This would not replace a colonoscopy but could be used as a screening tool for patients who do not want a colonoscopy. We discussed the importance of early detection of colon cancer. 4. Discussed current PSA screening. PSA screening can be done in most patients between age 50 and 65. However early detection of prostate cancer needs to carefully be balanced with complications with treatment. These include incontinence, impotence etc. Each patient should decide if they would like to have this test. 5. Discussed safe driving and no use of smart phone while driving 6. Age-appropriate immunizations were discussed. A tetanus booster is needed every 10 years. Flu vaccine is recommended every year just before the start of the flu season. Shingles vaccine is recommended after age 50 but not all insurances cover it. Pneumonia vaccine is given after age 65 unless there are certain comorbidities for which it is started earlier. 7. Diagnostic labs were discussed. These could include/not limited to CBC CMP and lipids with fasting blood glucose and insulin levels. Vitamin D and hemoglobin A1c testing might be appropriate. All questions have been answered to patient's satisfaction. Patient verbalized understanding of diagnosis and treatments explained. Advised to call sooner prior to next visit it any questions/concerns arise. Case discussed with collaborating physician Paras Reese who reviewed the assessment and plan. Chart, medications, labs, vital signs reviewed. Dictation was accomplished with the use of [employer] voice recognition software, which is prone to medical misidentifications and grammatical errors. This are unintentional and the practitioner does try to identify and correct these, but some could still be present. Please do not hesitate to contact practitioner for clarification. 04/23/2024 Depression screening (ICD-10 - Z13.31) Patient seen and examined. Comprehensive discussion was done on the following. # Hyperlipidemia: Lipid panel on 04/18/2024 demonstrating cholesterol 200, triglycerides 370, HDL 34, and LDL 103. ASCVD risk calculator with recommendation for moderate intensity statin. Therefore we will begin rosuvastatin 10 mg once daily in the evening. Discussed proper use of the medication and potential side effect profile including but not limited to musculoskeletal pain and fatigue. Patient states he will also begin supplementation again with omega-3 fatty acids. Further discussed importance of fiber intake, solvents like turmeric, garlic, and vitamin D supplementation to further decrease cholesterol and prevent other comorbidities. Encourage physical activity. He will follow-up in office in 6 months with repeat lipid panel for further management. # Hip pain: Patient reporting chronic hip pain since his 20s, no injuries or trauma. Does have history of sciatica. At this time reporting increased pain when lying in both of his hips in bed. Today he is without numbness, tingling, or other paresthesias. No difficulty with ambulation. On physical exam positive findings including tenderness to right hip with passive internal rotation. Will treat symptomatically with naproxen 250 mg every 12 hours as needed for acute pain. Discussed proper use of the medication and present side effect profile including but not limited to dyspepsia, nausea, abdominal pain, constipation. Will continue to monitor. # Right ankle pain: History of injury to right ankle in December, was walking downstairs and missed the last 2 steps. Reports mechanism of rolling his ankle. Went to [place] ED for further management, on imaging found to have avulsion. Has not had follow-up with orthopedics, was scheduled to have MRI however did not go for imaging as pain was improving. However now pain has resumed, has some difficulty initiating few steps however no other pain or difficulty with ambulation. Advised the patient to follow-up with orthopedics for evaluation and to schedule MRI. Patient understanding, will continue to monitor. # Vitamin D insufficiency: Vitamin D level on 04/19/2024 at 23.9. Will prescribe vitamin D 50 mcg to be taken once daily. Will continue to monitor with updated labs. # Umbilical hernia: Patient presented to [facility] emergency department 12/26/2023 for acute abdominal pain localized in umbilical area, described as something burst in his abdomen. Acute concerns at that time included aortic aneurysm, dissection of aorta, gastric perforation, small bowel obstruction. Labs were performed including CBC showing mild leukocytosis of 11.7, chemistries unremarkable, urinalysis unremarkable, CT scan of abdomen/pelvis showing no acute process indicating abdominal pain and no evidence of aortic dissection. Patient then followed up with gastroenterology, imaging continuing to indicate no acute reason for abdominal pain, however clinical evaluation by Dr. Russell suggesting umbilical hernia. Patient has consultation scheduled with general surgery in April, will continue to follow. # Sleep apnea: Reports history of snoring and several occasions of waking up feeling breathless. Has had sleep study done several years ago which was unremarkable at that time. Will refer to pulmonology for repeat sleep study and further intervention as deemed necessary. Will continue to follow. # GERD: Continue omeprazole 40 mg 30 minutes to 1 hour before meal. Discussed proper use of the medication and potential side effect profile including but not limited to abdominal pain, nausea, vomiting, diarrhea, and flatulence. Will continue to monitor. # Obesity: Weight 199 pounds, BMI 33.11. Encourage lifestyle modifications including improving diet and increasing physical activity including cardiovascular exercise and resistance training 3 times weekly. Will continue to monitor at subsequent visits. # Alcohol misuse: AUDIT-C administered in office with score of 7. Reporting 4 more times per week where he may have Bever containing alcohol, 3-4 drinks in typical setting, and monthly occurrence where he may have 6 or more drinks in 1 occasion. Reports consumption of beer and/or hard liquor. LFTs within normal limits with AST 23, ALT 31. Discussed risks of chronic alcohol consumption. Will continue to monitor. 1. Nutrition: It is important to follow a healthy diet based on lots of vegetables and legumes and good fat. Avoid processed food and processed carbohydrates. Prepare your own meals. Read labels and avoid high fructose corn syrup, processed chemicals added to increase shelf life and preprepared meals. Avoid fast foods. Eat slowly and plan meals for a week. Try to count calories and be mindful of daily calorie intake. Get into the habit of keeping an eye on your weight by using an appropriate scale. Learn to log exercise and discussed fitness Apps like [employer] which can help keep log off calories taken versus calories burned. Local food should be preferred. Discussed Dirty Dozen Versus Clean Fifteen. Discussed healthy supplements like fish oil, Tumeric, Curcumin, Melatonin, Resveratrol, Probiotics, Vitamin-D, Alpha-Lipoic acid, Vitamin-D and coconut oil. 2. It is important to exercise regularly. Is a good habit to walk at least 30 minutes a day. Gentle weightlifting with standard precautions to protect the back. Finding activity like cycling or hiking and get into the habit of engaging in it. Stretching before and after the exercises important. It is also important to contact me if there are any problems like shortness of breath, chest pain, back pain and joint or muscle pain associated with the exercise. 3. Discussed age appropriate screening guidelines. Colonoscopy needs to start at age 50 with stool for occult blood as appropriate. There is a new test that can test for genetic abnormalities in the stool sample, Cologuard. This would not replace a colonoscopy but could be used as a screening tool for patients who do not want a colonoscopy. We discussed the importance of early detection of colon cancer. 4. Discussed current PSA screening. PSA screening can be done in most patients between age 50 and 65. However early detection of prostate cancer needs to carefully be balanced with complications with treatment. These include incontinence, impotence etc. Each patient should decide if they would like to have this test. 5. Discussed safe driving and no use of smart phone while driving 6. Age-appropriate immunizations were discussed. A tetanus booster is needed every 10 years. Flu vaccine is recommended every year just before the start of the flu season. Shingles vaccine is recommended after age 50 but not all insurances cover it. Pneumonia vaccine is given after age 65 unless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
== END 2025-01-17 14:21 | disposition home or self-care (01) ==
LOC: HO.HPODS 13:47
PROVIDERS: Visit Provider Student in an Organized Health Care Education/Training Program
DX: M79.671 Pain in right foot (principal); M79.672 Pain in left foot; M25.571 Pain in right ankle and joints of right foot; M54.10 Radiculopathy, site unspecified; M76.71 Peroneal tendinitis, right leg
CPT/HCPCS: 99204

== ENCOUNTER 2025-01-22 12:12 | Outpatient (REF) | payer OTHER, SELFPAY ==
--- OUTSIDE RECORDS SUMMARY | 2024-03-27 05:30 | XMS_ITS ---
Author Organization [facility] Address [address] [place] [address] Care Team Providers Care Second Watch Sergeant Name Role Phone MAURY MULLINS [phone] Encounters Encounter Location Date Provider Diagnosis [facility] [address] [place] [address] 03/27/2024 MAURY MULLINS Plan Of Treatment Next Appt Details Provider Name:MAURY MULLINS , 05/01/2025 08:30:00 AM, [address], [address], [place], [address], Progress Notes * Lee CHAUDHARIDOB: 6 (49 yo M)Acc No.[id number]:03/27/2024 CPE Patient: Lee PACKER Provider: Jf MULLINS :1975 A ge:48 Y S ex:Male Date:03/27/2024 Address:[address] [place], [place] [id number] Subjective: * Chief Complaints: * * Medical History: Objective: * Vitals: Assessment: Plan: * Treatment: * Images: Billing Information: * Visit Code: * Procedure Codes: Care Plan Details* * Electronic signature of MARY MULLINS PA-C, [id number] on 01/22/2025 at 02:58 PM EST Sign off status: Pending * Provider: Jf MULLINS Date: 0 03/27/2024 Generated for Ninoskai ng/Fadeirdreg/eTransmitting on: 1 03/24/2024 02:58 PM EST
--- OUTSIDE RECORDS SUMMARY | 2024-09-04 05:00 | XMS_ITS ---
Author Organization [facility] Address [address] [place] [address] Care Team Providers Care Lieutenant Fire Fighter Name Role Phone MAURY MULLINS Unavailable [phone] REASON FOR VISIT pt presents to office for f/u with extreme pain- led to pt being taken to ER to be assessed for surgery- HLD Medications Medication SIG (Take, Route, Frequency, Duration) Notes Start Date End Date Status Naproxen 250 MG TAKE 1 TABLET BY JONNATHAN TH EVERY 12 HOURS WITH FOOD OR MILK FOR 30 DAYS NEEDED FOR PAIN; Duration: 30 Active Omeprazole 40 MG 1 capsule 1/2 to 1 h our before morning meal Orally Once a day Active Multivitamin Active Vitamin D (Cholecalciferol) 50 MCG (2000 UT) 1 capsule Orally Once a day; Duration: 30 days 04/23/2024 Active Rosuvastatin Calcium 10 MG 1 tablet Oral ly Once a day in the evening; Duration: 90 days 04/23/2024 Active Encounters Encounter Location Date Provider Diagnosis [facility] [address] [place] [id number] 09/04/2024 MAURY MULLINS Assessments Encounter Date Diagnosis (ICD Code) Assessment Notes Treatment Notes Treatment Clinical Notes Section Notes 09/04/2024 Lee is a 49-year-old male history of GERD, arthritis, vitamin D deficiency, medical hernia, chronic alcohol use, and hyperlipidemia who presents today for follow-up of cholesterol. While the patient was roomed however he experienced significant acute onset abdominal pain. Unable to find position of comfort in exam room. Reports that he was seen by [facility] general surgery, found to have 3 adjacent supraumbilical hernias on ultrasound. On exam the patient is not well-appearing and in acute distress. Abdomen is firm to palpation and is tender in all 4 quadrants. Because of known diagnosis of medical hernia, high concern as relates to incarcerated hernia among other abdominal pathology. Discussed benefit of having the patient be urgently seen by the ENT. Patient agrees with this plan. ED was informed at this visit and he was accompanied by staff and brought to [facility] ED for further evaluation. All questions have been answered to patient's satisfaction. Patient verbalized understanding of diagnosis and treatments explained. Advised to call sooner prior to next visit it any questions/concerns arise. Case discussed with collaborating physician Paras Reese who reviewed the assessment and plan. Chart, medications, labs, vital signs reviewed. Dictation was accomplished with the use of [employer] voice recognition software, which is prone to medical misidentifications and grammatical errors. This are unintentional and the practitioner does try to identify and correct these, but some could still be present. Please do not hesitate to contact practitioner for clarification. Plan Of Treatment Next Appt Details Provider Name:MAURY MULLINS , 05/01/2025 08:30:00 AM, [address] [place] [address], [phone], Progress Notes * Lee CHAUDHARIDOB: 6 (49 yo M)Acc No.[id number]:09/04/2024 Progress Notes Patient: Lee PACKER Provider: Jf RODGERSEdda HARPREET :1975 A ge:49 Y S ex:Male Date:09/04/2024 Address:[address] [place], [place] [id number] Subjective: * Chief Complaints: * 1 . pt presents to office for f/u with extreme pain- led to pt being taken to ER to be assessed for surgery- HLD. * HPI: C onstitutional: Lee is a 49-year-old male with history of GERD, arthritis, vitamin D insufficiency, umbilical hernia, chronic alcohol use, and hyperlipidemia who presents today for 6-month follow-up with a lipid panel. Lipid panel first obtained on 04/18/2024 with elevations of cholesterol 200, triglycerides 370, HDL reduced at 34, and LDL 103. He is currently on rosuvastatin 10 mg once daily in the evening. Patient presented today initially feeling well, however while he was being roomed by the medical laboratory specialist, reported sudden onset severe abdominal pain that is generalized. He reports that he was seen by [facility] general surgery back in May after he was referred to their practice in February, upon review of the chart, ultrasound of the abdomen revealed 3 adjacent supraumbilical hernias containing peritoneal fat. He reports that he has had similar episodes of this pain previously, 1 in which he went to [facility] ED for, a second time for which the pain resolved for 5 hours. Patient at this time cannot find a position of comfort. * ROS: C onstitutional: Patient denies any excessive fatigue with exercise, no weight loss, no fever, no night sweats, no changes in sleep. Eyes: No eye discharge, no itching, no redness, no vision changes. Advised the significance of regular eye exams to screen for glaucoma and other eye problems. Ear nose throat: No ear pain, No sore throat, no postnasal drip, no runny nose, no sneezing, no hearing changes Cardiovascular: No chest pain, no dyspnea on exertion, no PND, no orthopnea, no irregular pulse, no palpitations, no claudication, no diaphoresis, no claudication. Respiratory: No chronic cough, no hemoptysis, no sputum, no wheezing, no SOB, no pleuritic pain. GI:+ Generalized Abdominal pain. No diarrhea, no constipation, no blood in the stools, no pain associated with eating, no indigestion, no difficulty swallowing, no appetite change. Genitourinary: No painful urination, no hesitancy, no blood in the urine, no incontinence, no frequency, no urgency, no abnormal discharge. Musculoskeletal: No back pain, no joint pain, no limitations to walking and running, no joint deformity, no joint stiffness, no muscle weakness Integumentary: No new skin rash. No new changes in skin moles, no pruritis, no color change. Neurological: No history of seizures, no memory loss, no language dysfunction, no inability to concentrate, no localized weakness, no sensation loss, no confusion, no dizziness, no tremor, no numbness, no tingling. Psychiatric: no anxiety, no depression, no suicidal thoughts, feels safe at home. Endocrine: No polyuria, no polyphagia, no polydipsia. No heat/cold intolerance, no excesss thirst.? Hematological: No easy bruising or bleeding, no lymph node swelling. * Medical History: * Medications: T croettag Rosuvastatin Calcium 10 MG Tablet 1 tablet Orally Once a day in the evening , Taking Vitamin D (Cholecalciferol) 50 MCG (1999 UT) Capsule 1 capsule Orally Once a day , Taking Multivitamin , Taking Omeprazole 40 MG Capsule Delayed Release 1 capsule 1/2 to 1 hour before morning meal Orally Once a day , Taking Naproxen 250 MG Tablet TAKE 1 TABLET BY MOUTH EVERY 12 HOURS WITH FOOD OR MILK FOR 30 DAYS NEEDED FOR PAIN Objective: * Vitals: * Physical Examination: G eneral: Age appropriate 49-year-old male, unwell appearing, in acute distress. Well groomed, well developed. Alert, Interactive. Skin: Warm, dry and intact. No lesions/rashes/erythema. HEENT: Normocephalic/atraumatic. Neck/Thyroid: Full ROM. Lung: Equal chest rise and fall bilaterally. Abdomen:+ Rigid abdomen, exquisitely tender to palpation in all 4 quadrants. Neuro: CN II-XI grossly intact. Steady gait with ambulation observed. Symmetric reflexes. Psych: Stable mood and affect. Assessment: * Assessment: Lee is a 49-year-old mal e history of GERD, arthritis, vitamin D deficiency, medical hernia, chronic alcohol use, and hyperlipidemia who presents today for follow-up of cholesterol. While the patient was roomed however he experienced significant acute onset abdominal pain. Unable to find position of comfort in exam room. Reports that he was seen by [facility] general surgery, found to have 3 adjacent supraumbilical hernias on ultrasound. On exam the patient is not well-appearing and in acute distress. Abdomen is firm to palpation and is tender in all 4 quadrants. Because of known diagnosis of medical hernia, high concern as relates to incarcerated hernia among other abdominal pathology. Discussed benefit of having the patient be urgently seen by the ENT. Patient agrees with this plan. ED was informed at this visit and he was accompanied by staff and brought to [facility] ED for further evaluation. All questions have been answered to patient's satisfaction. Patient verbalized understanding of diagnosis and treatments explained. Advised to call sooner prior to next visit it any questions/concerns arise. Case discussed with collaborating physician Paras Reese who reviewed the assessment and plan. Chart, medications, labs, vital signs reviewed. Dictation was accomplished with the use of [employer] voice recognition software, which is prone to medical misidentifications and grammatical errors. This are unintentional and the practitioner does try to identify and correct these, but some could still be present. Please do not hesitate to contact practitioner for clarification. Plan: * Treatment: * Images: Billing Information: * Visit Code: * Procedure Codes: Care Plan Details* * Electronic signature of MARY MULLINS PA-C, [id number] on 01/22/2025 at 02:58 PM EST Sign off status: Pending * Provider: Jf MULLINS Date: 0 09/04/2024 Generated for Merrill acharya/Anais/Tye on: 1 03/24/2024 02:58 PM EST History and Physical Notes * HPI (History of Present Illness) Category Sub-Category Detail Notes Category Not es Constitutional Lee is a 49-year-old male with history of GERD, arthritis, vitamin D insufficiency, umbilical hernia, chronic alcohol use, and hyperlipidemia who presents today for 6-month follow-up with a lipid panel. Lipid panel first obtained on 04/18/2024 with elevations of cholesterol 200, triglycerides 370, HDL reduced at 34, and LDL 103. He is currently on rosuvastatin 10 mg once daily in the evening. Patient presented today initially feeling well, however while he was being roomed by the medical laboratory specialist, reported sudden onset severe abdominal pain that is generalized. He reports that he was seen by [facility] general surgery back in May after he was referred to their practice in February, upon review of the chart, ultrasound of the abdomen revealed 3 adjacent supraumbilical hernias containing peritoneal fat. He reports that he has had similar episodes of this pain previously, 1 in which he went to [facility] ED for, a second time for which the pain resolved for 5 hours. Patient at this time cannot find a position of comfort. Physical Examination Category Sub-Category Detail Notes Section Note s General: Age appropriate 49-year-old male, unwell appearing, in acute distress. Well groomed, well developed. Alert, Interactive. Skin: Warm, dry and intact. No lesions/rashes/erythema. HEENT: Normocephalic/atraumatic. Neck/Thyroid: Full ROM. Lung: Equal chest rise and fall bilaterally. Abdomen: + Rigid abdomen, exquisitely tender to palpation in all 4 quadrants. Neuro: CN II-XI grossly intact. Steady gait with ambulation observed. Symmetric reflexes. Psych: Stable mood and affect
--- NOTE | ~2025-01-22 | XR_ITS ---
EXAMINATION: XR ANKLE, RIGHT CLINICAL INFORMATION: M25.571 - Pain in right ankle and joints of right foot COMPARISON: None available. TECHNIQUE: AP, lateral, and mortise views of the right ankle. Weight-bearing. FINDINGS: There is a well-corticated 6 mm calcification above the distal talus. No acute cortical disruption or malalignment. No lytic or blastic lesions. No gross joint effusion, anterior tibiotarsal bursa. No subcutaneous emphysema. XR/XR ankle RT min 3V IMPRESSION: No acute fracture or dislocation. Electronically signed by: Abhijeet Dinero MD 01/22/2025 01:22 PM EST
--- NOTE | ~2025-01-22 | XR_ITS ---
EXAMINATION: XR FOOT 3 OR MORE VIEWS BILATERAL HISTORY: M79.671 - Pain in right foot COMPARISON: Comparison is made with the prior examination of the right foot dated 02/02/2024. FINDINGS: Six views of the bilateral feet are submitted. Osseous mineralization is normal. A well-corticated osseous density is seen adjacent to the right anterior talus, compatible with an old injury. No acute fracture or dislocation is seen. The joint spaces are preserved. The soft tissues are unremarkable. XR/XR Foot Marcos 3V IMPRESSION: Old injury to the anterior dorsal talus. Otherwise unremarkable examination of the bilateral feet. Electronically signed by: Jeremy Bethea MD 01/22/2025 01:26 PM EST
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
== END 2025-01-22 12:13 | disposition home or self-care (01) ==
LOC: HO.XRAY 12:12
PROVIDERS: Visit Provider Student in an Organized Health Care Education/Training Program
DX: M79.671 Pain in right foot (principal); M79.672 Pain in left foot; M25.571 Pain in right ankle and joints of right foot
CPT/HCPCS: 73610; 73630

== ENCOUNTER → 2025-01-22 12:18 | Outpatient (BNV) | payer OTHER, SELFPAY | PROVIDERS: Visit Provider Radiology Diagnostic Radiology | DX: M25.571 Pain in right ankle and joints of right foot (principal); M79.671 Pain in right foot; M79.672 Pain in left foot | CPT/HCPCS: 73610; 73630 ==

== ENCOUNTER 2025-02-04 09:07 | Outpatient (AMB) | payer OTHER, SELFPAY ==
[2025-02-04 09:17] VITALS: BMI 30.7
--- NOTE | 2025-02-04 09:17 | A.OFFVIS_ITS ---
Vital Signs 02/04/25 09:17 Height 5 ft 6 in Weight 190 lb BMI 30.7 Intake Visit Reasons: f/u xrays and nerve studies; B/L foot pain and rig Intake Note: Lee is a 49 year old male who presents today for a follow up on his Bilateral foot pain. At his last visit Bilateral foot and right ankle X-rays where ordered and results are in patients chart. Nerve conduction study and EMG were also ordered and has been scheduled for 02/05/25. Patient reports he has seen no changes in regards to his foot pain Allergies No Known Allergies Allergy (Verified 02/04/25 09:18) Medication List - Last Reconciled 02/04/25 by Rosa Meneses DPM meloxicam 15 mg PO DAILY PRN omeprazole 40 mg PO DAILY HPI Comments Details: The patient is a 49-year-old male presenting with right foot and ankle pain associated with right ankle pain and right peroneal tendonitis. The pain is not constant but can reach a severity of7-8/10, particularly exacerbated by driving due to the positioning of the foot. The pain is localized around the peroneal tendons at the lateral aspect of the foot and occasionally presents as a sharp sensation. Patient had x-rays done and is currently scheduled for his EMG/NCV tomorrow. The patient has been taking naproxen for pain management with mild relief. He continues to experience intermittent numbness and tingling to the lower extremities. [facility] Medical History (Updated 02/04/25 @ 09:33 by Rosa Meneses DPM) Peroneal tendinitis of right lower extremity Radiculopathy Right ankle pain Bilateral foot pain Review of Systems Const Details: - Musculoskeletal: Reports intermittent severe pain in the right foot and ankle, particularly on the lateral side. - Neurological: Reports occasional sciatic pain and intermittent electrical shock like sensations in both feet. All systems reviewed & are unremarkable except as noted in HPI and below Physical Exam Vital Signs: BMI result Body Mass Index 30.7 Extrem Other: B/L Focused Physical Exam: Derm: No open lesions, abrasions, or wounds noted. No ecchymosis or discoloration noted. Skin supple and turgor WNL. No maceration noted. No clinical signs of infection noted. Vasc: DP/PT pulses palpable. CFT < 3 secs. Temp gradient warm to warm. Pedal hair present. Mild edema noted to the right ankle. No varicosities noted. Neuro: Protective sensations grossly diminished. MSK: Pain on palpation to the base of the right 5th met. Pain along the course of the right peroneus brevis tendon radiating towards the ankle behind the fibula. ROM of the forefoot, hindfoot, and ankles WNL. Pain with range of motion of the right ankle worse with plantar flexion, eversion, and inversion. No crepitus or fluctuance noted. No pain on palpation to the left lower extremity. MMT 4/5. Mildly antalgic gait unassisted. Results Reviewed Results Reviewed: Awaiting NCV/EMG to be performed prior to next visit. Podiatry read of bilateral foot x-ray (01/22/2025): Os supratalare noted to the right foot. Mild osteophytic changes noted to the TMJ and navicular medial cuneiform joint. No acute fractures or dislocations noted. Bilateral foot x-ray (01/22/2025): FINDINGS: Six views of the bilateral feet are submitted. Osseous mineralization is normal. A well-corticated osseous density is seen adjacent to the right anterior talus, compatible with an old injury. No acute fracture or dislocation is seen. The joint spaces are preserved. The soft tissues are unremarkable. IMPRESSION: Old injury to the anterior dorsal talus. Otherwise unremarkable examination of the bilateral feet. Podiatry read of right ankle x-ray (01/22/2025): No acute fractures or dislocations noted. Joint spacing within normal limits. Right ankle x-ray (01/22/2025): FINDINGS: There is a well-corticated 6 mm calcification above the distal talus. No acute cortical disruption or malalignment. No lytic or blastic lesions. No gross joint effusion, anterior tibiotarsal bursa. No subcutaneous emphysema. IMPRESSION: No acute fracture or dislocation. Assessment & Plan Assessment & Plan (1) Right ankle sprain: Code(s): S93.401A - Sprain of unspecified ligament of right ankle, initial encounter Category: Medical Qualifiers: Encounter type: subsequent encounter Involved ligament of ankle: unspecified ligament Qualified Code(s): S93.401D - Sprain of unspecified ligament of right ankle, subsequent encounter (2) Bilateral foot pain: Code(s): M79.671 - Pain in right foot; M79.672 - Pain in left foot Category: Medical (3) Right ankle pain: Code(s): M25.571 - Pain in right ankle and joints of right foot Category: Medical (4) Peroneal tendinitis of right lower extremity: Code(s): M76.71 - Peroneal tendinitis, right leg Category: Medical (5) Radiculopathy: Code(s): M54.10 - Radiculopathy, site unspecified Category: Medical Plan Patient was informed and verbally consented to the use of an ambient scribe for clinic note documentation during this visit. I discussed with the patient the presence of an accessory bone to the superior aspect of the talar head and its normalcy. We reviewed the x-ray findings, including the arthritis in the right foot, and the plan to manage pain with meloxicam. I explained the importance of stabilizing the ankle with a brace during activities to prevent exacerbation of symptoms. We agreed on conducting a nerve conduction study for comprehensive assessment and scheduled a follow-up in three weeks to evaluate progress and consider further interventions if necessary. - Prescribed meloxicam to manage pain and swelling in the right ankle. - Recommended the use of a lace-up ankle brace to stabilize the ankle during activities such as driving and running errands. Provided patient with the lace- up stabilizing ankle brace. - Nerve studies scheduled for tomorrow. - Continue rice protocol. - Advised patient to avoid barefoot walking and to wear supportive shoe gear. - Consider physical therapy or an ankle injection if symptoms persist. RTC in 3 weeks. Medications: New meloxicam 15 mg PO DAILY PRN 30 tabs 0RF Right ankle pain M25.571 - Pain in right ankle and joints of right foot, M76.71 - Peroneal tendinitis, right leg, M79.671 - Pain in right foot, M79.672 - Pain in left foot, S93.401A - Sprain of unspecified ligament of right ankle, initial encounter Coding Level of Care Code Est Pt Level 4 (58247) Diagnoses Sprain of right ankle, unspecified ligament, subsequent encounter S93.401D Encounter type: subsequent encounter Involved ligament of ankle: unspecified ligament Bilateral foot pain M79.671; M79.672 Right ankle pain M25.571 Peroneal tendinitis of right lower extremity M76.71 Radiculopathy M54.10 Time Spent (min) 35
== END 2025-02-04 09:44 | disposition home or self-care (01) ==
LOC: HO.HPODS 09:07
PROVIDERS: Visit Provider Student in an Organized Health Care Education/Training Program
DX: S93.401D Sprain of unspecified ligament of right ankle, subsequent encounter (principal); M79.671 Pain in right foot; M79.672 Pain in left foot; M25.571 Pain in right ankle and joints of right foot; M76.71 Peroneal tendinitis, right leg; M54.10 Radiculopathy, site unspecified
CPT/HCPCS: 99214

== ENCOUNTER 2025-02-05 09:14 | Outpatient (REF) | payer OTHER, SELFPAY ==
--- NOTE | 2025-02-05 09:18 | EMG_ITS ---
Chief complaint: Pain and numbness in lower extremities Reason for referral: M54.10 Radiculopathy Referred by: Rosa Montero MD Procedure done: NCS and EMG of bilateral lower extremities Bilateral peroneal and tibial motor studies were performed with F responses. Tibial H reflexes were obtained. Bilateral superficial peroneal and sural sensory studies were performed and median and lateral mixed plantar sensory studies were performed. Needle examination was performed. Findings: Motor studies did not reveal any significant abnormality. Left sural amplitude was severely diminished with mild slowing of conduction velocity. Left superficial peroneal amplitude was severely diminished. In feet, lateral plantars mixed amplitudes were severely diminished. Long duration polyphasic potentials were noted in bilateral mid to lower paraspinals. H reflexes were absent. Impression: Chronic bilateral mid to lower lumbar radiculopathy Codin [address] x2 MTDD
== END 2025-02-05 09:15 | disposition home or self-care (01) ==
LOC: HO.NEURO 09:14
PROVIDERS: Visit Provider Student in an Organized Health Care Education/Training Program
DX: R20.0 Anesthesia of skin (principal); M79.671 Pain in right foot; M79.672 Pain in left foot; M54.10 Radiculopathy, site unspecified
CPT/HCPCS: 95886; 95913

== ENCOUNTER → 2025-02-05 09:18 | Outpatient (BNV) | payer OTHER, SELFPAY | PROVIDERS: Visit Provider Psychiatry & Neurology Neurology | DX: M54.16 Radiculopathy, lumbar region (principal) | CPT/HCPCS: 95886; 95913 ==

== ENCOUNTER 2025-02-25 10:47 | Outpatient (AMB) | payer OTHER, SELFPAY ==
[2025-02-25 10:52] VITALS: BMI 30.7
--- NOTE | 2025-02-25 10:52 | MHC.OFFVIS ---
Vital Signs 02/25/25 10:52 Height 5 ft 6 in Weight 190 lb BMI 30.7 Intake Visit Reasons: f/u EMG; right ankle pain and peroneal tendinitis Intake Note: Lee is a 49 year old male who presents today for a follow up of EMG and right ankle pain and peroneal tendinitis. At last visit patient was given a lace up brace and was prescribed meloxicam for pain swelling management. Patient states he is doing well with no further concerns at this time. EMG was done. Allergies No Known Allergies Allergy (Verified 02/25/25 11:11) HPI Comments Details: The patient is a 49 year old male presenting for a follow-up visit for bilateral foot pain, right ankle pain, peroneal tendonitis of right lower extremity, and radiculopathy. Patient also presents today to review the results of a recent nerve conduction study. He reports his ankle pain is variable, with intermittent 'zingers' of pain that can be a 7-8/10 in severity. He uses the lace-up ankle brace which provides some relief and takes meloxicam as needed for pain with some relief. The patient also reports a history of intermittent pain on the same side, which originates in his lower back and radiates down his buttock and leg, which he assumed was sciatica. He has not sought specialty care for his back and has not undergone formal physical therapy. He denies any new pedal injuries. He denies any other pedal concerns. [facility] Medical History (Updated 02/25/25 @ 11:22 by Rosa Meneses DPM) Lumbar pain Peroneal tendinitis of right lower extremity Radiculopathy Right ankle pain Bilateral foot pain Review of Systems Const Details: - Musculoskeletal: Reports intermittent right ankle pain and low back pain radiating down the leg. - Neurological: Reports intermittent, 'zinger'-like pain in the right ankle. All systems reviewed & are unremarkable except as noted in HPI and below Physical Exam Exam Exam: Physical Exam Vital Signs: BMI result Body Mass Index 30.7 Extrem Other: B/L Focused Physical Exam: Derm: No open lesions, abrasions, or wounds noted. No ecchymosis or discoloration noted. Skin supple and turgor WNL. No maceration noted. No clinical signs of infection noted. Vasc: DP/PT pulses palpable. CFT < 3 secs. Temp gradient warm to warm. Pedal hair present. Mild edema noted to the right ankle. No varicosities noted. Neuro: Protective sensations grossly diminished. MSK: Pain on palpation to the base of the right 5th met. Pain along the course of the right peroneus brevis tendon radiating towards the ankle behind the fibula. ROM of the forefoot, hindfoot, and ankles WNL. Pain with range of motion of the right ankle worse with plantar flexion, eversion, and inversion. No crepitus or fluctuance noted. No pain on palpation to the left lower extremity. MMT 4/5. Mildly antalgic gait unassisted. Results Reviewed Results Reviewed: EMG/NCV (02/05/25): Findings: Motor studies did not reveal any significant abnormality. Left sural amplitude was severely diminished with mild slowing of conduction velocity. Left superficial peroneal amplitude was severely diminished. In feet, lateral plantars mixed amplitudes were severely diminished. Long duration polyphasic potentials were noted in bilateral mid to lower paraspinals. H reflexes were absent. Impression: Chronic bilateral mid to lower lumbar radiculopathy Podiatry read of bilateral foot x-ray (01/22/2025): Os supratalare noted to the right foot. Mild osteophytic changes noted to the TMJ and navicular medial cuneiform joint. No acute fractures or dislocations noted. Bilateral foot x-ray (01/22/2025): FINDINGS: Six views of the bilateral feet are submitted. Osseous mineralization is normal. A well-corticated osseous density is seen adjacent to the right anterior talus, compatible with an old injury. No acute fracture or dislocation is seen. The joint spaces are preserved. The soft tissues are unremarkable. IMPRESSION: Old injury to the anterior dorsal talus. Otherwise unremarkable examination of the bilateral feet. Podiatry read of right ankle x-ray (01/22/2025): No acute fractures or dislocations noted. Joint spacing within normal limits. Right ankle x-ray (01/22/2025): FINDINGS: There is a well-corticated 6 mm calcification above the distal talus. No acute cortical disruption or malalignment. No lytic or blastic lesions. No gross joint effusion, anterior tibiotarsal bursa. No subcutaneous emphysema. IMPRESSION: No acute fracture or dislocation. Assessment & Plan Assessment & Plan (1) Radiculopathy: Code(s): M54.10 - Radiculopathy, site unspecified Category: Medical (2) Lumbar pain: Code(s): M54.50 - Low back pain, unspecified Category: Medical (3) Right ankle sprain: Code(s): S93.401A - Sprain of unspecified ligament of right ankle, initial encounter Category: Medical Qualifiers: Encounter type: subsequent encounter Involved ligament of ankle: unspecified ligament Qualified Code(s): S93.401D - Sprain of unspecified ligament of right ankle, subsequent encounter (4) Bilateral foot pain: Code(s): M79.671 - Pain in right foot; M79.672 - Pain in left foot Category: Medical (5) Right ankle pain: Code(s): M25.571 - Pain in right ankle and joints of right foot Category: Medical (6) Peroneal tendinitis of right lower extremity: Code(s): M76.71 - Peroneal tendinitis, right leg Category: Medical Plan Patient was informed and verbally consented to the use of an ambient scribe for clinic note documentation during this visit. 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 I explained that the study also indicated a radiculopathy, suggesting his leg and foot pain is originating from his back. We discussed that vertebral joint space narrowing or swelling can impinge on the nerve, causing the electrical shock-like pain he experiences. I recommended he see an pipe recovery specialist for his back and start physical therapy for both his back and lower extremities. I advised him to continue using the lace-up ankle brace for support and to follow up here in two months. - The patient was advised to continue wearing his lace-up ankle brace. - Continue Meloxicam prn for pain. - A referral was placed for the patient to see an Orthopedics specialist for evaluation of his back pain and radiculopathy. - A referral was placed for physical therapy for his lower back and lower extremity pain. - Continue rice protocol. - Advised patient to avoid barefoot walking and to wear supportive shoe gear. RTC in 2 months. Orders: Orders PT Evaluation and Treatment 02/25/25 M25.571 - Pain in right ankle and joints of right foot, M54.10 - Radiculopathy, site unspecified, M54.50 - Low back pain, unspecified, M76.71 - Peroneal tendinitis, right leg, M79.671 - Pain in right foot, M79.672 - Pain in left foot, S93.401D - Sprain of unspecified ligament of right ankle, subsequent encounter Referrals Orthopedics Referral M54.10 - Radiculopathy, site unspecified, M54.50 - Low back pain, unspecified Coding Level of Care Code Est Pt Level 4 (10617) Diagnoses Radiculopathy M54.10 Lumbar pain M54.50 Sprain of right ankle, unspecified ligament, subsequent encounter S93.401D Encounter type: subsequent encounter Involved ligament of ankle: unspecified ligament Bilateral foot pain M79.671; M79.672 Right ankle pain M25.571 Peroneal tendinitis of right lower extremity M76.71 Time Spent (min) 32
== END 2025-02-25 11:25 | disposition home or self-care (01) ==
LOC: HO.HPODS 10:48
PROVIDERS: Visit Provider Student in an Organized Health Care Education/Training Program
DX: M54.10 Radiculopathy, site unspecified (principal); M54.50 Low back pain, unspecified; S93.401D Sprain of unspecified ligament of right ankle, subsequent encounter; M79.671 Pain in right foot; M79.672 Pain in left foot; M25.571 Pain in right ankle and joints of right foot; M76.71 Peroneal tendinitis, right leg
CPT/HCPCS: 99214